=== PATIENT | male | born 1950 | race Caucasian/White ===

== ENCOUNTER 2016-09-24 14:48 | Outpatient (CLI) | payer MEDICARE, OTHER ==
[~2016-09-24] VITALS: Ht 182.9 cm; Wt 114.6 kg
[~2016-09-24 14:48] MED LIST: ASPI-983 PO; CARV25TA PO; CITA40TA11 PO; LISI-556 PO; METF1000 PO; MULT-10 PO; OMG1KC PO; SIMV80TA3 PO; TAMS0.4C2 PO
[2016-09-24 15:27] VITALS: BP 121/69
[2016-09-24] MEDS ORDERED: ASPI325T32 PO (15:56)
[2016-09-24] MEDS ORDERED: OMEG-9 PO (15:56)
--- NOTE | 2016-09-24 16:22 | HISTORY AND PHYSICAL ---
DATE OF SERVICE: REASON FOR ADMISSION: Outpatient surgery on 09/26/2016 for left knee arthroscopy. HISTORY OF PRESENT ILLNESS: The patient is a 66-year-old gentleman with progressively worsening left knee pain. He has previously undergone two arthroscopies. He reports that he was doing very well until he slipped and has had lateral knee pain since that point. This has been ongoing for several weeks. It has not improved since the time of his injury. He was doing well prior to his fall. He denies posterior knee pain. He reports pain laterally. He denies fevers, chills, night sweats or weight loss. REVIEW OF SYSTEMS: No chest pain, no shortness of breath, no dysuria. PAST MEDICAL HISTORY: Coronary artery disease, diabetes mellitus type 2. PAST SURGICAL HISTORY: Coronary artery bypass, TURP, colon resection. FAMILY HISTORY: Significant for ischemic heart disease. PRIMARY CARE PROVIDER: Dr. Sotelo. MEDICATIONS: Celexa, fish oil, vitamins, aspirin, carvedilol, lisinopril, metformin, simvastatin, gabapentin, and Tovaiz. ALLERGIES: PENICILLIN. SOCIAL HISTORY: The patient drinks alcohol occasionally and denies tobacco use. RADIOGRAPHS: Reveal near complete loss of his medial joint space. PHYSICAL EXAMINATION: GENERAL: The patient is a well-developed, well-nourished, in no acute distress. HEENT: Normocephalic and atraumatic. Pupils are equal, round, and reactive to light. Oropharynx is clear. NECK: Supple with no lymphadenopathy. LUNGS: Clear to auscultation bilaterally. HEART: Regular rate and rhythm. ABDOMEN: Soft, nontender, and nondistended. EXTREMITIES: The left knee demonstrates a moderate effusion. He is markedly tender along his lateral joint and he has pain laterally with Carlyn's. He has pain with the patellar loading. He is nontender over his medial joint line. He is nontender posteriorly. Range of motion is 0/3/140. He is ligamentously stable in all planes. The patient ambulates with a cane. 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 PLAN: Left knee arthroscopy, partial meniscectomy and chondroplasty. The risks, benefits, options, ramifications, and recovery were discussed at length with the patient. He understands and wishes to proceed. Job ID: [id number] DocumentID: [id number] Dictated Date: 09/24/2016 15:03:45 Agricultural Equipment Operator Date: 09/24/2016 16:12:01 Dictated By: MARÍA MATHIS MD
== END 2016-09-24 16:18 | disposition home or self-care (01) ==
LOC: PREOP 14:48
PROVIDERS: ATTEND Orthopaedic Surgery
DX: Z01.818 Encounter for other preprocedural examination (principal); S83.242A Other tear of medial meniscus, current injury, left knee, initial encounter; X58.XXXA Exposure to other specified factors, initial encounter; Y99.8 Other external cause status
CPT/HCPCS: 87081

== ENCOUNTER 2016-09-26 07:47 | Day surgery (SDC) | payer MEDICARE, OTHER ==
[~2016-09-26] VITALS: Ht 182.9 cm; Wt 114.6 kg
[~2016-09-26 07:47] MED LIST changes: +ASPI325T32 PO; +OMEG-9 PO
[2016-09-26 08:10] VITALS: BP 137/75
[2016-09-26] MEDS ORDERED: FAMOTIDINE 20MG/2ML IV (PEPCID) IV ONE (08:15)
[2016-09-26] MEDS ORDERED: CLINDAMYCIN 600 MG/4ML (CLEOCIN) VIAL ONE (08:16)
[2016-09-26] MEDS ORDERED: NS (IVPB) 50 ML ONE (08:16)
--- NOTE | 2016-09-26 08:20 | Progress Note-Pre Operative ---
Pre-Operative Progress Note H&P Reviewed The H&P was reviewed, patient examined and no changes noted. Date Seen by Provider: Sep 26, 2016 Time Seen by Provider: 08:19 Date H&P Reviewed: Sep 26, 2016 Time H&P Reviewed: 05:36 Pre-Operative Diagnosis: left knee lateral meniscus tear and chondromalacia MARÍA MATHIS MD Sep 26, 2016 08:20
--- NOTE | 2016-09-26 08:21 | Progress Note-Post Operative ---
Post-Operative Progess Note Surgeon (s)/Crown Wheel Assembler (s) Surgeon MARÍA MATHIS MD Crown Wheel Assembler: Sharad Lees Pre-Operative Diagnosis left knee lateral meniscus tear and chondromalacia Post-Operative Diagnosis left knee lateral and medial meniscus tears and chondromalacia of the medial femoral condyle, lateral tibial plateau and patella Procedure & Operative Findings Date of Procedure 09/26/16 Procedure Performed/Findings left knee arthroscopic partial lateral and medial meniscectomies and chondroplasty of the medial femoral condyle, lateral tibial plateau and patella Anesthesia Type GETA Estimated Blood Loss Estimated blood loss (mL): minimal Specimens/Packing Specimens Removed none Packing: none MARÍA MATHIS MD Sep 26, 2016 08:21
[2016-09-26] MEDS ORDERED: CLINDAMYCIN 600 MG/NS 50 ML IVPB IV ONE ×2 (08:30)
[2016-09-26] MEDS ORDERED: CATHETER FLUSH 10 ML SYR IV PRN (08:30)
[2016-09-26] MEDS ORDERED: HYDROcodone/APAP 7.5 MG/325 MG (LORTAB, LORCET PLUS) TABLET PO PRN (08:30)
[2016-09-26] MEDS: LACTATED RINGERS 1,000 ML IV PRN ×2 (08:31→09:22)
[2016-09-26] MEDS ORDERED: HURRICAINE EXT TUBE (BENZOCAINE) ONE (08:38)
[2016-09-26] MEDS ORDERED: morphine PF (DURAMORPH) 10 MG/10 ML AMP ONE (08:38)
[2016-09-26] MEDS ORDERED: proPOfol 200 MG/20 ML (DIPRIVAN) VIAL IV ONE ×2 (08:38→09:10)
[2016-09-26] MEDS ORDERED: LACTATED RINGERS 1,000 ML IV ONE (08:38)
[2016-09-26] MEDS ORDERED: LIDOCAINE PF 2% 5 ML (XYLOCAINE) VIAL ONE (08:38)
[2016-09-26] MEDS ORDERED: SEVOFLURANE (ULTANE) 15 ML INHAL SOLN ONE ×3 (08:38→09:27)
[2016-09-26] MEDS ORDERED: DEXAMETHASONE PF 10 MG/ML (DECADRON) VIAL ONE ×2 (08:38→09:27)
[2016-09-26] MEDS ORDERED: fentaNYL INJECTION 100 MCG/2 ML AMP ONE (08:38)
[2016-09-26] MEDS ORDERED: MIDAZOLAM 2 MG/2 ML (VERSED) VIAL ONE (08:38)
[2016-09-26] MEDS ORDERED: BUPIVACAINE 0.25% 30 ML (SENSORCAINE) VIAL ONE (08:38)
[2016-09-26] MEDS ORDERED: ATRACURIUM 50 MG/5 ML (TRACRIUM) IV ONE (09:12)
[2016-09-26] MEDS ORDERED: morphine INJ 10 MG/ML 1ML (SYR OR VIAL) IVP PRN (10:00)
[2016-09-26] MEDS ORDERED: HYDR-3816 PO (10:16)
[2016-09-26 10:40] VITALS: BP 133/80
[2016-09-26 11:10] VITALS: BP 128/69
--- NOTE | 2016-09-26 11:45 | OPERATIVE REPORT ---
DATE OF SERVICE: 09/26/2016 PREOPERATIVE DIAGNOSIS: 1. Left knee medial meniscal tear. 2. Left knee chondromalacia of the medial femoral condyle. 3. Left knee chondromalacia of the patella. POSTOPERATIVE DIAGNOSIS: 1. Left knee medial meniscal tear. 2. Left knee chondromalacia of the medial femoral condyle. 3. Left knee chondromalacia of the patella. 4. Left knee medial meniscal tear. 5. Left knee chondromalacia of the lateral tibial plateau. PROCEDURES: 1. Left knee arthroscopic partial medial meniscectomy. 2. Left knee arthroscopic partial lateral meniscectomy. 3. Left knee arthroscopic chondroplasty of the medial femoral condyle. 4. Left knee arthroscopic chondroplasty of the lateral tibial plateau. 5. Left knee arthroscopic chondroplasty of the patella. SURGEON: Ivan Mathis MD. WEAPONS SPECIALIST: Sharad Lees, who assisted throughout the procedure and closed the incisions. ANESTHESIA: General endotracheal by Dr. Carreno. TOURNIQUET TIME: Not applicable. ESTIMATED BLOOD LOSS: Minimal. DRAINS: None. COMPLICATIONS: None. POSTOPERATIVE PLAN: Routine arthroscopy protocol. The patient was transported to the recovery room awake and in stable condition. STATEMENT OF MEDICAL NECESSITY: The patient is a 66-year-old gentleman with known arthrosis of his left knee and his medial and patellofemoral compartments. He began to experience lateral knee pain, catching and locking and he was tender along this lateral joint line. It was felt that he likely had a lateral meniscal tear. He had failed to respond to conservative measures and due to functional impairment, the patient elected to proceed with surgical intervention. Examination under anesthesia revealed range of motion of 0/3/125 with a negative Ricky, negative anterior and posterior drawer, no varus or valgus laxity and a negative pivot shift. ARTHROSCOPIC FINDINGS: The patella demonstrated grade 2 chondral flap centrally in a 10 x 10 area. The trochlea demonstrated grade 1-2 chondral softening with no unstable chondral flaps. Medial and lateral gutters were clear. The medial compartment demonstrated diffuse grade 3-4 chondral changes with unstable chondral flaps on medial femoral condyle in a 10 x 10 area. In addition, there was a flap tear of the body of the medial meniscus involving approximately one-third of the body. The ACL and PCL were intact. The lateral compartment demonstrated a 2:25 tear of the posterior horn of the meniscus involving approximately one-third of the posterior horn. In addition, there was a grade 2 chondral flap on the tibial plateau laterally in an 8 x 8 area. PROCEDURE: After risks and benefits of the procedure were discussed and questions were answered, an informed consent was signed and placed on the chart. The operative site was confirmed in the preoperative holding area and initialled by the surgeon. The patient was then transported to the operating room and after adequate levels of general endotracheal anesthetic were obtained, a timeout was called confirming the operative site. Examination under anesthesia was performed with the above findings noted. The left lower extremity was prepped and draped in the usual sterile fashion. The knee joint was injected with 60 mL of fluid and a standard inferolateral portal was placed for the arthroscope under direct visualization and inferomedial port was created. The menisci and cruciates were carefully probed with the above findings noted. The unstable chondral flaps on the patella were debrided with a shaver back to a stable edge. The scope was redirected into the medial compartment, the unstable chondral flaps of the medial femoral condyle were debrided with a shaver back to a stable edge and the medial meniscus was debrided with a shaver back to a stable edge. This was carefully probed with no further tearing or instability noted. The scope was then redirected into the lateral compartment where the unstable chondral flaps on the lateral tibial plateau were debrided with shaver back to a stable edge and the posterolateral meniscus was debrided with a biter and a shaver removing the proximal one-third of the posterior horn and this was carefully probed with no further tearing or instability noted. The knee was copiously irrigated. Port sites were closed with 3-0 nylon in simple interrupted fashion. The knee was injected with Duramorph. The port sites were infiltrated with plain Marcaine. A soft dressing was applied and patient transported to the recovery room awake in stable condition. Job ID: [id number] DocumentID: [id number] Dictated Date: 09/26/2016 09:49:35 Slurry Man Date: 09/26/2016 11:44:37 Dictated By: IVAN MATHIS MD
--- NOTE | 2016-09-26 12:16 | Physical Therapy Ortho Eval ---
PT Orthopedic Evaluation Type of Surgery Knee Scope Prior Level of Function Current Living Status: Spouse Established Durable Medical Eq: Crutches Subjective Subjective Agreeable to PT. Reprots he has crutches at home Entry Into Home: Stairs With Railing Steps Into Home: 2 Motor Control Motor Control: Motor Control WNL ROM ROM: WFL, except focal deficit (left knee slightly limited) Strength Strength: Gen Weak,No Focal Deficit (left LE grossly 4-/5 ) Transfer Transfers (B, C, W/C) (FIM): 5 Gait Gait Assistive Device: FWW Weight Bearing Restriction: Weight Bearing/Tolerated Location Restriction: L LE Gait (FIM): 5 Distance (FIM): 3=150 ft Summary/Comments Mod indep with gait post treatment; Educated on and trained with crutches on stairs, pt demonstrated mod indep at conclusion of treatment. Treatment Rendered Treatment: Therapeutic Exercises, Gait Train, Step Train Exercise Instruction: Quad Sets, Straight Leg Raise, Heel Slides Assessment/Goals Goal Time Frame: 1 Visit Understands HEP: Yes Safe Ambulation: Yes Mod indep with functional mobility post treatment. Plan Treatment Plan: Discharge PT/Family Agrees to Plan: Yes Time Time In: 1135 Time Out: 1155 Total Billed Treatment Time: 20 Billed Treatment Time visit EVL 20 No PT/OT Therapy GCodes Therapy Functional Limitation: Physical Therapy Test(s)/Tool used to determine: Level of Assistance Scale Functional Limitation-Current Charge Code: MOBCUR Modifier: CJ Functional Limitation-Goal Charge Code: MOBGOAL Modifier: CI Functional Limitation-D/C Charge Codes: MOBDC Modifier: CI DORY HODGES PT Sep 26, 2016 12:16
== END 2016-09-26 11:58 | disposition home or self-care (01) ==
LOC: SDC 07:47
PROVIDERS: ATTEND Orthopaedic Surgery
DX: M23.8X2 Other internal derangements of left knee (principal); M22.42 Chondromalacia patellae, left knee; I10 Essential (primary) hypertension; I25.10 Atherosclerotic heart disease of native coronary artery without angina pectoris; Z95.1 Presence of aortocoronary bypass graft; E78.5 Hyperlipidemia, unspecified; I50.9 Heart failure, unspecified; E11.9 Type 2 diabetes mellitus without complications; K21.9 Gastro-esophageal reflux disease without esophagitis; Z79.899 Other long term (current) drug therapy; Z79.82 Long term (current) use of aspirin
CPT/HCPCS: 82962

== ENCOUNTER → 2017-01-15 | Outpatient (CLI) | payer MEDICARE, OTHER ==
[~2017-01-15] MED LIST changes: +HYDR-3816 PO
[2017-01-15 09:01] LABS: BASOPHILS % (AUTO) 1 % (0-10); EOSINOPHILS # (AUTO) 0.2 10^3/uL (0.0-0.3); EOSINOPHILS % (AUTO) 4 % (0-10); LYMPHOCYTES # (AUTO) 1.6 X 10^3 (1.0-4.0); LYMPHOCYTES % (AUTO) 44 % (12-44); MEAN CORPUSCULAR HEMOGLOBIN 29 PG (25-34); MEAN CORPUSCULAR HGB CONC 34 G/DL (32-36); MEAN CORPUSCULAR VOLUME 87 FL (80-99); MEAN PLATELET VOLUME 10.7 FL (7.4-10.4); MONOCYTES # (AUTO) 0.3 X 10^3 (0.0-1.0); MONOCYTES % (AUTO) 7 % (0-12); NEUTROPHILS # (AUTO) 1.6 X 10^3 (1.8-7.8); NEUTROPHILS % (AUTO) 44 % (42-75); PLATELET COUNT 136 10^3/uL (130-400); RED BLOOD COUNT 5.12 10^6/uL (4.35-5.85); RED CELL DISTRIBUTION WIDTH 13.1 % (10.0-14.5); WHITE BLOOD COUNT 3.7 10^3/uL (4.3-11.0)
[2017-01-15 09:23] LABS: ALANINE AMINOTRANSFERASE 20 U/L (0-55); ANION GAP 8 MMOL/L (5-14); ASPARTATE AMINO TRANSFERASE 28 U/L (5-34); BLOOD UREA NITROGEN 9 MG/DL (7-18); BUN/CREATININE RATIO 12; CALCIUM 9.2 MG/DL (8.5-10.1); CARBON DIOXIDE 27 MMOL/L (21-32); CHLORIDE 106 MMOL/L (98-107); CREATININE SERUM 0.73 MG/DL (0.60-1.30); GFR ESTIMATED > 60; GLUCOSE 113 MG/DL (70-105); POTASSIUM 4.5 MMOL/L (3.6-5.0); SODIUM 141 MMOL/L (135-145); TOTAL PROTEIN 6.7 GM/DL (6.4-8.2)
== END ==
LOC: ONC 08:32
PROVIDERS: ATTEND Internal Medicine Hematology & Oncology
DX: C18.3 Malignant neoplasm of hepatic flexure (principal)
CPT/HCPCS: 80053; 82378; 85025; 99213

== ENCOUNTER 2017-03-07 21:50 | Observation (INO) | payer MEDICARE, OTHER ==
[~2017-03-07] VITALS: Ht 182.9 cm; Wt 114.0 kg
--- NOTE | 2017-03-07 22:08 | ED Chest Pain ---
General Chief Complaint: Chest Pain Stated Complaint: CP Nursing Triage Note: PT TRANSFER FROM [facility] FOR COMPLAINT OF CHEST PAIN. PT STATES PAIN STARTED SATURDAY. STATES THE PAIN WORSENED THIS AFTERNOON. Nursing Sepsis Screen: No Definite Risk Source: patient, family ( and brother) Exam Limitations: no limitations History of Present Illness Date Seen by Provider: Mar 07, 2017 Time Seen by Provider: 21:59 Initial Comments Patient present to ER by private conveyance with a history that he just came from [facility] where he was seen and for his chest pain. His chest pains described as been going on for the last 2 days, episodic and he points in his epigastric and right upper quadrant region when asked where it is. He describes it as sharp, intermittent and takes his breath away. His been getting worse since he has a history of heart disease with four-vessel CABG and stent with most recent cardiac coronary catheterization about [address] Shi in [place], [place] he decided to go get seen. His initial troponin and EKG were normal and his story did not sound very cardiac so the practitioner in the ER in [place] called local on-call educational manager who recommended that he be sent to the ER in its [place] for workup and observation stay given his coronary history. Patient says he quit smoking just before his first heart attack years ago. He does take a statin but he says his cholesterol and triglycerides of been good. He has no history of pancreatitis. He does drink beer on occasion usually one or 2 a week and his last beer was about 5 days ago. He has not had any trauma to his abdomen or car wrecks. He is not having any reflux or heartburn sensations tonight however he does have a history of acid reflux. He has had half of his colon resected for a polyp years ago. This is left him with chronically loose stools. Otherwise is having no fevers, chills, cough, rash, nasal congestion, ears feeling under water or fall. His pain is not necessarily worsened by movement but definitely by deeper inspiration. In the [place] ER he did receive 2 doses of nitroglycerin which his pain went away shortly thereafter. Presently he says he is not having any pain, nausea, numbness or tingling. Allergies and Home Medications Allergies Coded Allergies: Penicillins (Verified Allergy, Unknown, 09/24/16) Home Medications Aspirin 325 Mg Tablet., 325 MG PO DAILY, (Reported) Carvedilol 25 Mg Tablet, 12.5 MG PO BID, (Reported) TAKE 1/2 OF 25MG TAB Citalopram Hydrobromide 40 Mg Tablet, 20 MG PO DAILY, (Reported) TAKE 1/2 OF 40MG TAB Hydrocodone/Acetaminophen 1 Each Tablet, 1-2 EACH PO Q4H, #30 Prescribed by: VALERIY GUPTA on 09/26/16 1016 Lisinopril 5 Mg Tablet, 2.5 MG PO DAILY, (Reported) TAKE 1/2 OF 5MG TAB Metformin HCl 1,000 Mg Tablet, 1,000 MG PO BID, (Reported) Multivits,Stress Formula 1 Each Tablet, 1 EACH PO DAILY, (Reported) [place] 3 Polyunsat Fatty Acids 1,000 Mg Cap, 1,000 MG PO DAILY, (Reported) [place]-3/Dha/Epa/Fish Oil 1 Each Capsule.dr, 1 EACH PO DAILY, (Reported) Simvastatin 80 Mg Tablet, 40 MG PO DAILY, (Reported) TAKE 1/2 OF 80MG TAB Tamsulosin HCl 0.4 Mg Cap.er.24h, 0.4 MG PO HS, (Reported) Review of Systems Constitutional: No chills, No diaphoresis, No dizziness, No fever, No malaise EENTM: No Blurred Vision, No Double Vision Respiratory: Denies Cough, SOA at Rest, Denies Wheezing Cardiovascular: See HPI, Chest Pain, Denies Irregular Heart Rate, Denies Lightheadedness, Denies Palpitations Gastrointestinal: See HPI, Abdomen Distended (mildly), Abdominal Pain, Denies Constipated, Diarrhea, Denies Nausea, Denies Vomiting Genitourinary: Denies Burning, Denies Discharge Musculoskeletal: No back pain, No joint pain Skin: No pruritus, No rash Psychiatric/Neurological: Denies Headache, Denies Numbness, Denies Paresthesia Past Pdidymx-Jdyqjh-Bazgxl Hx Patient Social History Alcohol Use: Occasionally Uses Alcohol Beverage of Choice: Beer Recreational Drug Use: No Smoking Status: Former Smoker Type Used: Cigarettes Former Smoker, Quit: Sep 25, 1991 Recent Foreign Travel: No Contact w/Someone Who Travel: No Recent Infectious Disease Expo: No Recent Hopitalizations: No Immunizations Up To Date Tetanus Booster (TDap): Unknown Date of Pneumonia Vaccine: Nov 21, 2015 Date of Influenza Vaccine: Nov 21, 2015 Seasonal Allergies Seasonal Allergies: Yes (MILD) Surgeries Surgeries: Adenoidectomy, CABG, Coronary Stent, Tonsillectomy Cardiovascular Cardiac Disorders: Heart Attack, High Cholesterol, Hypertension Reproductive System Hx Reproductive Disorders: No Sexually Transmitted Disease: No HIV/AIDS: No Genitourinary Genitourinary Disorders: Prostate Problems Gastrointestinal Gastrointestinal Disorders: Gastroesophageal Reflux Musculoskeletal Musculoskeletal Disorders: Degenerate Disk Disease, Arthritis Endocrine Endocrine Disorders: Diabetes, Non-Insulin dep HEENT Loss of Vision: Bilateral Hearing Impairment: Denies Cancer Cancer: Colon Psychosocial Behavioral Health Disorders: Anxiety Blood Transfusions Adverse Reaction to a Blood Tr: No Physical Exam Vital Signs Vital Sign - Last 12Hours Capillary Refill : Less Than 3 Seconds General Appearance: No Apparent Distress, WD/WN HEENT: PERRL/EOMI, Normal ENT Inspection, Pharynx Normal Neck: Normal Inspection, Non Tender, Supple Respiratory: Chest Non Tender, Lungs Clear, Normal Breath Sounds, No Accessory Muscle Use, No Respiratory Distress Cardiovascular: Regular Rate, Rhythm, No Edema, No Murmur, Normal Peripheral Pulses Gastrointestinal: Normal Bowel Sounds, No Organomegaly, Non Tender, Soft Neurologic/Psychiatric: Alert, Oriented x3 Skin: Normal Color, Warm/Dry Progress/Results/Core Measures Results/Orders Lab Results Laboratory Tests Test 03/07/17 21:53 Range/Units White Blood Count 6.2 4.3-11.0 10^3/uL Red Blood Count 4.98 4.35-5.85 10^6/uL Hemoglobin 14.6 13.3-17.7 G/DL Hematocrit 43 40-54 % Mean Corpuscular Volume 86 80-99 FL Mean Corpuscular Hemoglobin 29 25-34 PG Mean Corpuscular Hemoglobin Concent 34 32-36 G/DL Red Cell Distribution Width 13.4 10.0-14.5 % Platelet Count 143 130-400 10^3/uL Mean Platelet Volume 10.9 H 7.4-10.4 FL Neutrophils (%) (Auto) 41 L 42-75 % Lymphocytes (%) (Auto) 48 H 12-44 % Monocytes (%) (Auto) 8 0-12 % Eosinophils (%) (Auto) 4 0-10 % Basophils (%) (Auto) 0 0-10 % Neutrophils # (Auto) 2.5 1.8-7.8 X 10^3 Lymphocytes # (Auto) 3.0 1.0-4.0 X 10^3 Monocytes # (Auto) 0.5 0.0-1.0 X 10^3 Eosinophils # (Auto) 0.2 0.0-0.3 10^3/uL Basophils # (Auto) 0.0 0.0-0.1 10^3/uL Prothrombin Time 13.3 12.2-14.7 SEC INR Comment 1.0 0.8-1.4 Activated Partial Thromboplast Time 29 24-35 SEC D-Dimer 0.45 0.00-0.49 UG/ML Sodium Level 141 135-145 MMOL/L Potassium Level 4.2 3.6-5.0 MMOL/L Chloride Level 107 98-107 MMOL/L Carbon Dioxide Level 24 21-32 MMOL/L Anion Gap 10 5-14 MMOL/L Blood Urea Nitrogen 16 7-18 MG/DL Creatinine 0.81 0.60-1.30 MG/DL Estimat Glomerular Filtration Rate > 60 BUN/Creatinine Ratio 20 Glucose Level 113 H 70-105 MG/DL Calcium Level 9.5 8.5-10.1 MG/DL Magnesium Level 2.1 1.8-2.4 MG/DL Total Bilirubin 0.8 0.1-1.0 MG/DL Aspartate Amino Transf (AST/SGOT) 33 5-34 U/L Alanine Aminotransferase (ALT/SGPT) 25 0-55 U/L Alkaline Phosphatase 46 40-136 U/L Myoglobin 104.7 H 10.0-92.0 NG/ML Troponin I < 0.30 <0.30 NG/ML B-Type Natriuretic Peptide 21.6 <100.0 PG/ML Total Protein 6.7 6.4-8.2 GM/DL Albumin 4.0 3.2-4.5 GM/DL Lipase 38 8-78 U/L My Orders Orders - MAYI SONG Cbc With Automated Diff (03/07/17 22:06) Magnesium (03/07/17 22:06) Ekg Tracing (03/07/17 22:06) Cardiac Profile 1 (03/07/17 22:06) Comprehensive Metabolic Panel (03/07/17 22:06) Myoglobin Serum (03/07/17 22:06) Protime With Inr (03/07/17 22:06) Partial Thromboplastin Time (03/07/17 22:06) O2 (03/07/17 22:06) Monitor-Rhythm Ecg Trace Only (03/07/17 22:06) Lipid Panel (03/08/17 06:00) Aspirin Chewable Tablet (Baby Aspirin Ch (03/07/17 22:15) Saline Lock/Iv-Start (03/07/17 22:06) Lipase (03/07/17 22:06) BNP (03/07/17 22:06) Fibrin Degradation Products (03/07/17 22:06) Chest Pa/Lat (2 View) (03/07/17 22:06) Lidocaine 2% Viscous 15 Ml (Xylocaine Vi (03/07/17 22:30) Famotidine Tablet (Pepcid Tablet) (03/07/17 22:17) Antacid Suspension (Mylanta Suspension (03/07/17 22:30) Medications Given in ED Current Medications Medications Dose Ordered Sig/Barrie Route Start Time Stop Time Status Last Admin Dose Admin Al Hydrox/Mg Hydrox/Simethicone 30 ml ONCE ONCE PO 03/07/17 22:30 03/07/17 22:31 DC 03/07/17 22:23 30 ML Aspirin 81 mg ONCE ONCE PO 03/07/17 22:15 03/07/17 22:16 DC 03/07/17 22:23 81 MG Lidocaine HCl 15 ml ONCE ONCE PO 03/07/17 22:30 03/07/17 22:31 DC 03/07/17 22:23 15 ML Vital Signs/I&O Vital Sign - Last 12Hours 03/07/17 03/07/17 03/07/17 21:50 21:50 21:50 Temp 98.0 Pulse 55 Resp 20 B/P (MAP) 148/74 (98) Pulse Ox 99 99 O2 Delivery Room Air Room Air Nasal Cannula O2 Flow Rate 2.00 2.00 Blood Pressure Mean: 98 Progress Note : Time: 22:14 Progress Note Patient describes this pain is different from what he felt when he was having a heart attack in the past. So cardiogenic as not as likely to be the case however he does deserve a serial troponin and EKG workup given his extensive cardiac history. We'll also get a d-dimer despite him having no coughing he is having shortness of breath but normal sats so low intermediate risk for pulmonary embolism. No evidence of DVT. We'll also trial a GI cocktail see if that helps with some of his symptoms however he is not having any of the pain right now. Esophageal spasms, bronchospasms, peptic ulcer disease, pancreatitis , gallbladder disease are also in the differential. Given his pleuritic chest pain nature there could be inflammation along his diaphragm from a pneumonia, or other inflammatory source. ECG Initial ECG Impression Date: Mar 07, 2017 Initial ECG Impression Time: 21:53 Initial ECG Rate: 55 Initial ECG Rhythm: Normal Sinus Initial ECG Intervals: LA (172) Initial ECG Impression: Normal, Nonspecific Changes Initial ECG Comparisson: Unchanged Comment No appreciable T-wave elevation or depression. Diagnostic Imaging Diagonstic Imaging: Xray Plain Films/CT/US/NM/MRI: chest (2v) Comments No acute cardiopulmonary processes noted. Evidence of prior cardiac surgery noted. Reviewed: Reviewed by Me Departure Communication (Admissions) Time/Spoke to Admitting Phy: 23:[address] Ochoa and she is okay to admit the patient. Time/Spoke to Consulting Phy: 22:55 Communication/Consulting Dr. Quinonez: Discussed case lab imaging and findings and he would like an echocardiogram and stress test in the morning. Impression Impression: Primary Impression: Chest pain on exertion Disposition: ADMITTED INPATIENT Condition: Stable Admissions Decision to Admit Reason: Admit from ER (General) Decision to Admit/Date: Mar 07, 2017 Time/Decision to Admit Time: 22:17 Departure-Patient Inst. Referrals: SHAKIRA DÍAZ DO (PCP/Family) Primary Care Physician Copy Copies To 1: SHAKIRA DÍAZ TITUS J Mar 07, 2017 22:08
[2017-03-07] MEDS ORDERED: ASPIRIN 81 MG CHEW (CHILDREN'S ASA) PO ONE (22:15)
[2017-03-07] MEDS ORDERED: FAMOTIDINE 20 MG (PEPCID) TABLET PO STA (22:17)
[2017-03-07 22:18] LABS: BASOPHILS % (AUTO) 0 % (0-10); EOSINOPHILS # (AUTO) 0.2 10^3/uL (0.0-0.3); EOSINOPHILS % (AUTO) 4 % (0-10); HEMATOCRIT 43 % (40-54); HEMOGLOBIN 14.6 G/DL (13.3-17.7); LYMPHOCYTES % (AUTO) 48 % (12-44); MEAN CORPUSCULAR HEMOGLOBIN 29 PG (25-34); MEAN CORPUSCULAR HGB CONC 34 G/DL (32-36); MEAN CORPUSCULAR VOLUME 86 FL (80-99); MEAN PLATELET VOLUME 10.9 FL (7.4-10.4); MONOCYTES # (AUTO) 0.5 X 10^3 (0.0-1.0); MONOCYTES % (AUTO) 8 % (0-12); NEUTROPHILS # (AUTO) 2.5 X 10^3 (1.8-7.8); NEUTROPHILS % (AUTO) 41 % (42-75); PLATELET COUNT 143 10^3/uL (130-400); RED BLOOD COUNT 4.98 10^6/uL (4.35-5.85); RED CELL DISTRIBUTION WIDTH 13.4 % (10.0-14.5); WHITE BLOOD COUNT 6.2 10^3/uL (4.3-11.0)
[2017-03-07 22:23] LABS: PROTHROMBIN TIME PATIENT 13.3 SEC (12.2-14.7)
[2017-03-07 22:24] LABS: ALANINE AMINOTRANSFERASE 25 U/L (0-55); ALKALINE PHOSPHATASE 46 U/L (40-136); BILIRUBIN,TOTAL 0.8 MG/DL (0.1-1.0); BUN/CREATININE RATIO 20; CALCIUM 9.5 MG/DL (8.5-10.1); CARBON DIOXIDE 24 MMOL/L (21-32); CHLORIDE 107 MMOL/L (98-107); CREATININE SERUM 0.81 MG/DL (0.60-1.30); GFR ESTIMATED > 60; GLUCOSE 113 MG/DL (70-105); LIPASE 38 U/L (8-78); MAGNESIUM 2.1 MG/DL (1.8-2.4); POTASSIUM 4.2 MMOL/L (3.6-5.0); SODIUM 141 MMOL/L (135-145); TOTAL PROTEIN 6.7 GM/DL (6.4-8.2)
[2017-03-07] MEDS ORDERED: LIDOCAINE 2% VISCOUS 15 ML UDC PO ONE (22:30)
[2017-03-07] MEDS ORDERED: ANTACID SUSP 30 ML UDC (MYLANTA) PO ONE (22:30)
[2017-03-07 22:31] LABS: MYOGLOBIN SERUM 104.7 NG/ML (10.0-92.0)
[2017-03-07 23:42] VITALS: BP 137/74
[2017-03-07 23:45] VITALS: BP 133/71
[2017-03-08] VITALS (26 sets, daily range): BP systolic 122–159; BP diastolic 52–83
[2017-03-08] MEDS ORDERED: morphine INJ 4 MG/ML 1 ML (VIAL/SYRINGE) IV PRN (01:30)
[2017-03-08] MEDS ORDERED: NITROGLYCERIN 0.4 MG SL TABS BTL 25'S SL PRN (01:30)
[2017-03-08] MEDS ORDERED: ONDANSETRON 4 MG/2 ML (SDV) Z0FRAN IV PRN (01:30)
[2017-03-08] MEDS ORDERED: ACETAMINOPHEN 500 MG TAB (TYLENOL) PO PRN (01:30)
[2017-03-08 04:48] LABS: BASOPHILS % (AUTO) 0 % (0-10); EOSINOPHILS # (AUTO) 0.1 10^3/uL (0.0-0.3); EOSINOPHILS % (AUTO) 3 % (0-10); HEMATOCRIT 42 % (40-54); HEMOGLOBIN 14.2 G/DL (13.3-17.7); LYMPHOCYTES # (AUTO) 2.1 X 10^3 (1.0-4.0); LYMPHOCYTES % (AUTO) 46 % (12-44); MEAN CORPUSCULAR HEMOGLOBIN 30 PG (25-34); MEAN CORPUSCULAR HGB CONC 34 G/DL (32-36); MEAN CORPUSCULAR VOLUME 87 FL (80-99); MEAN PLATELET VOLUME 10.6 FL (7.4-10.4); MONOCYTES # (AUTO) 0.3 X 10^3 (0.0-1.0); MONOCYTES % (AUTO) 8 % (0-12); NEUTROPHILS % (AUTO) 43 % (42-75); PLATELET COUNT 127 10^3/uL (130-400); RED BLOOD COUNT 4.81 10^6/uL (4.35-5.85); RED CELL DISTRIBUTION WIDTH 13.3 % (10.0-14.5); WHITE BLOOD COUNT 4.6 10^3/uL (4.3-11.0)
[2017-03-08 05:05] LABS: BUN/CREATININE RATIO 19; CALCIUM 8.8 MG/DL (8.5-10.1); CARBON DIOXIDE 24 MMOL/L (21-32); CHLORIDE 106 MMOL/L (98-107); CREATININE SERUM 0.74 MG/DL (0.60-1.30); GFR ESTIMATED > 60; GLUCOSE 113 MG/DL (70-105); POTASSIUM 4.2 MMOL/L (3.6-5.0); SODIUM 141 MMOL/L (135-145)
[2017-03-08] MEDS: inSUlin (REGULAR) HUMAN 1 UNIT/0.01 ML (CHARGE PER UNIT) SC SCH ×3 (05:06→17:38)
[2017-03-08 05:07] LABS: CHOLESTEROL 123 MG/DL (< 200); HDL CHOLESTEROL 37 MG/DL (40-60); TRIGLYCERIDES 81 MG/DL (<150); VLDL CHOLESTEROL 16 MG/DL (5-40)
--- NOTE | 2017-03-08 06:50 | Diagnostic Imaging Report ---
INDICATION: Chest pain. PA and lateral views of chest were obtained. FINDINGS: Heart size is normal. There has been previous median sternotomy and coronary bypass graft. There is no pleural effusion, pneumothorax or pneumonia. Mediastinum is unremarkable. IMPRESSION: No acute cardiopulmonary abnormality. Dictated by: Dictated on workstation # [id number]
[2017-03-08] MEDS ORDERED: ASPIRIN E.C. 325 MG (ECOTRIN) TABLET PO SCH (09:00)
[2017-03-08] MEDS ORDERED: lisINopril 5 MG (PRINIVIL) TABLET PO SCH (09:00)
--- NOTE | 2017-03-08 10:20 | Consultation-Cardiology ---
HPI-Cardiology Cardiology Consultation: Date of Consultation 03/08/17 Date of Admission Attending Physician Kathy Ochoa DO Admitting Physician Jaime Sotelo DO Consulting Physician Queenie QUINONEZ MD HPI: Time Seen by Provider: 09:10 Chief Complaint: Chest pain This is a 67-year-old gentleman who presented to [place] emergency department for chest pain. His chest pain has been going on for a couple of days and is more in the lower chest area and the epigastric area. He describes it as sharp and associated with breathing occasionally. He's had CABG and PCI in the past. He has previous history of smoking. Occasional alcohol use. Patient denies any other cardiac symptoms including shortness of breath, palpitation, syncope, near syncope. Review of Systems-Cardiology Review of Systems Constitutional: No As described under HPI, No no symptoms reported, No chills, No fever, No lightheadedness, No malaise, No tiredness, No weight loss, No weight gain, No other Eyes: No As described under HPI, No no symptoms reported, No blindness, No blurred vision, No contact lenses, No drainage, No decreased acuity, No foreign body sensation, No glasses, No inflammation, No pain, No photophobia, No previous injury, No shadows, No tunnel vision, No other, No vision change Ears/Nose/Throat: No As described under HPI, No no symptoms reported, No chronic hearing loss, No epistaxis, No ear discharge, No ear pain, No loose teeth, No mouth pain, No mouth swelling, No nasal drainage, No nose pain, No recent hearing loss, No throat pain, No throat swelling, No ulcerations, No other Respiratory: No no symptoms reported, No As described under HPI, No cough, No orthopnea, No shortness of breath, No SOB with excertion, No SOB at rest, No stridor, No wheezing, No other Cardiovascular: chest pain Gastrointestinal: No no symptoms reported, No As described under HPI, No abdomen distended, No abdominal pain, No blood streaked bowels, No constipation , No diarrhea, No difficulty swallowing, No nausea, No poor appetite, No poor fluid intake, No rectal bleeding, No vomiting, No other, No nausea/vomiting/ diarrhea, No stool coloration changes Genitourinary: No no symptoms reported, No As described under HPI, No burning, No dysuria, No discharge, No frequency, No flank pain, No hematuria, No incontinence, No pain, No urgency, No other, No urine frequency changes, No urine coloration changes Musculoskeletal: No no symptoms reported, No As describe under HPI, No back pain, No gout, No joint pain, No joint swelling, No muscle pain, No muscle stiffness, No neck pain, No other Skin: No no symptoms reported, No As described under HPI, No change in color, No change in hair/nails, No dryness, No lesions, No lumps, No rash, No other, No skin related problems, No ulcerations, No rash on exposed areas, No ulcerations on exposed areas Psychiatric/Neurological: No no symptoms reported, No As described under HPI, No anxiety, No depression, No emotional problems, No headache, No numbness, No pre-existing deficit, No seizure, No tingling, No tremors, No weakness, No other , No focal weakness, No syncope Hematologic: No no symptoms reported, No As described under HPI, No anemia, No blood clots, No easy bleeding, No easy bruising, No swollen glands, No other, No bleeding abnormalities [id number] Hx Patient Social History Alcohol Use: Occasionally Uses Recreational Drug Use: No Smoking Status: Former Smoker Type Used: Cigarettes Recent Foreign Travel: No Recent Infectious Disease Expo: No Hospitalization with Isolation: Denies Physical Abuse Screen: No Sexual Abuse: No Immunizations Up To Date Tetanus Booster (TDap): Unknown Date of Pneumonia Vaccine: Nov 21, 2015 Date of Influenza Vaccine: Nov 20, 2016 Past Medical History PMH As described under Assessment. Family Medical History Family History: Cardiovascular disease TWIN BROTHER, Onset:Unknown Myocardial infarction 19 MOTHER, Allergies and Home Medications Allergies Coded Allergies: Penicillins (Verified Allergy, Unknown, 09/24/16) Home Medications Aspirin 325 Mg Tablet.dr, 325 MG PO DAILY, (Reported) Carvedilol 25 Mg Tablet, 12.5 MG PO BID, (Reported) TAKE 1/2 OF 25MG TAB Citalopram Hydrobromide 40 Mg Tablet, 20 MG PO DAILY, (Reported) TAKE 1/2 OF 40MG TAB Lisinopril 5 Mg Tablet, 2.5 MG PO DAILY, (Reported) TAKE 1/2 OF 5MG TAB Metformin HCl 1,000 Mg Tablet, 1,000 MG PO BID, (Reported) Multivits,Stress Formula 1 Each Tablet, 1 TAB PO DAILY, (Reported) [place] 3 Polyunsat Fatty Acids 1,000 Mg Cap, 1,000 MG PO DAILY, (Reported) Simvastatin 80 Mg Tablet, 40 MG PO HS, (Reported) TAKE 1/2 OF 80MG TAB Tamsulosin HCl 0.4 Mg Cap.er.24h, 0.4 MG PO HS, (Reported) Physical Exam-Cardiology Physical Exam Vital Signs/I&O Vital Sign - Last 12Hours 03/07/17 03/07/17 03/07/17 03/07/17 23:35 23:40 23:42 23:45 Temp 98.0 97.5 Pulse 59 58 56 Resp 20 16 B/P (MAP) 137/74 (95) 133/71 (91) Pulse Ox 96 97 97 O2 Delivery Room Air Room Air Room Air Room Air 03/07/17 03/08/17 03/08/17 03/08/17 23:49 00:00 00:00 00:15 Pulse 55 58 56 B/P (MAP) 143/78 (99) 129/69 (89) Pulse Ox 100 O2 Delivery Room Air Nasal Cannula Room Air O2 Flow Rate 2.00 03/08/17 03/08/17 03/08/17 03/08/17 00:30 00:33 00:45 01:00 Pulse 55 56 53 B/P (MAP) 133/69 (90) 134/68 (90) 137/68 (91) Pulse Ox 100 O2 Delivery Room Air Nasal Cannula Nasal Cannula Nasal Cannula O2 Flow Rate 2.00 2.00 2.00 03/08/17 03/08/17 03/08/17 03/08/17 01:00 01:15 01:30 01:45 Pulse 53 54 52 51 B/P (MAP) 129/67 (87) 124/68 (86) 136/72 (93) O2 Delivery Nasal Cannula Nasal Cannula Nasal Cannula O2 Flow Rate 2.00 2.00 2.00 03/08/17 03/08/17 03/08/17 03/08/17 02:00 03:00 04:00 04:00 Temp 97.6 Pulse 52 54 53 B/P (MAP) 131/70 (90) 132/72 (92) 129/64 (85) Pulse Ox 100 O2 Delivery Nasal Cannula Nasal Cannula Nasal Cannula Nasal Cannula O2 Flow Rate 2.00 2.00 2.00 2.00 03/08/17 03/08/17 03/08/17 05:00 06:00 07:00 Pulse 52 54 80 B/P (MAP) 142/70 (94) 124/62 (82) O2 Delivery Nasal Cannula Nasal Cannula O2 Flow Rate 2.00 2.00 Capillary Refill : Less Than 3 Seconds Constitutional: No appears stated age, No AAO x 3, No apparent distress, No PERRL, No well-developed, No well-nourished, No other HEENT: No PERRL, No normal ENT inspection, No TMs normal, No pharynx normal, No scleral icterus (R), No scleral icterus (L), No pale conjunctivae (R), No pale conjunctivae (L), No photophobia, No TM abnormal (R), No TM abnormal (L), No pharyngeal erythema, No tonsillar exudate, No other, No discharge, No EOMI, No hearing is well preserved, No hard of hearing, No oral hygience is good, No ulceration, No xanthelasmas are seen Neck: No non-tender, No full range of motion, No supple, No normal inspection, No carotid bruit, No limited range of motion, No lymphadenopathy (R), No lymphadenopathy (L), No tender lateral, No tender midline, No thyromegaly, No other, No carotid pulses are 2 + bilaterally, No with good upstrokes Respiratory: No accessory muscle use, No respiratory distress, No chest tender , No chest expansion is symmetric, No chest is bilaterally symmetric, No lungs clear to percussion, No lungs clear to auscultation, No crackles, No rhonchi, No rales, No stridor, No wheezing, No pleural rub, No other Cardiovascular: regular rate-rhythm, No irregularly irregular, No extra beats, No parasternal heave is noted, No JVD, No edema, No bradycardia, No tachycardia , No point of maximal impulse, No cardiac thrills are palpable, S1 and S2, No gallop/S3, No gallop/S4, No diastolic murmur, No systolic murmur, No friction rub, No click, No other Gastrointestinal: No tender, No soft, No round, No distended, No pulsatile mass , No organomegaly, No guarding, No rebound, No tenderness, No hernia, No mass, No audible bowel sounds, No abnormal bowel sounds, No abdominal bruits, No spleenomegaly, No other Rectal: deferred Extremities: No normal range of motion, No non-tender, No normal inspection, No pedal edema, No calf tenderness, No normal capillary refill, No pelvis stable , No calf tenderness, No inflammation, No pedal edema, No slow capillary refill , No swelling, No other, No abrasion, No clubbing, No cyanosis, No ecchymosis, No laceration, No no lower extremity edema bilateral, No significant edema, No tenderness, No wound Neurologic/Psychiatric: No day haul youth supervisor II-XII nml as tested, No no motor/sensory deficits, No alert, No normal mood/affect, No oriented x 3, No abnormal cerebellar tests, No abnormal day haul youth supervisor II-XII, No abnormal gait, No aphasia, No EOM palsy, No facial droop, No motor weakness, No sensory deficit, No depressed affect, No disoriented x 3, No other, No grossly intact, No power is 5/5 both on sides Skin: No normal color, No warm/dry, No cyanosis, No cool, No diaphoresis, No damp, No ecchymosis, No jaundice, No mottled, No pallor, No rash, No tattoos/ piercings, No ulcerations, No rash on exposed areas, No ulcerations on exposed areas, No other Data Review Labs Laboratory Tests 03/07/17 21:53: White Blood Count 6.2, Red Blood Count 4.98, Hemoglobin 14.6, Hematocrit 43, Mean Corpuscular Volume 86, Mean Corpuscular Hemoglobin 29, Mean Corpuscular Hemoglobin Concent 34, Red Cell Distribution Width 13.4, Platelet Count 143, Mean Platelet Volume 10.9H, Neutrophils (%) (Auto) 41L, Lymphocytes (%) (Auto) 48H, Monocytes (%) (Auto) 8, Eosinophils (%) (Auto) 4, Basophils (%) (Auto) 0, Neutrophils # (Auto) 2.5, Lymphocytes # (Auto) 3.0, Monocytes # (Auto) 0.5, Eosinophils # (Auto) 0.2, Basophils # (Auto) 0.0, Prothrombin Time 13.3, INR Comment 1.0, Activated Partial Thromboplast Time 29, D-Dimer 0.45, Sodium Level 141, Potassium Level 4.2, Chloride Level 107, Carbon Dioxide Level 24, Anion Gap 10, Blood Urea Nitrogen 16, Creatinine 0.81, Estimat Glomerular Filtration Rate > 60, BUN/Creatinine Ratio 20, Glucose Level 113H, Calcium Level 9.5, Magnesium Level 2.1, Total Bilirubin 0.8, Aspartate Amino Transf (AST/SGOT) 33, Alanine Aminotransferase (ALT/SGPT) 25, Alkaline Phosphatase 46, Myoglobin 104.7H, Troponin I < 0.30, B-Type Natriuretic Peptide 21.6, Total Protein 6.7, Albumin 4.0, Lipase 38 03/08/17 04:30: White Blood Count 4.6, Red Blood Count 4.81, Hemoglobin 14.2, Hematocrit 42, Mean Corpuscular Volume 87, Mean Corpuscular Hemoglobin 30, Mean Corpuscular Hemoglobin Concent 34, Red Cell Distribution Width 13.3, Platelet Count 127L, Mean Platelet Volume 10.6H, Neutrophils (%) (Auto) 43, Lymphocytes (%) (Auto) 46H, Monocytes (%) (Auto) 8, Eosinophils (%) (Auto) 3, Basophils (%) (Auto) 0, Neutrophils # (Auto) 2.0, Lymphocytes # (Auto) 2.1, Monocytes # (Auto) 0.3, Eosinophils # (Auto) 0.1, Basophils # (Auto) 0.0, Sodium Level 141, Potassium Level 4.2, Chloride Level 106, Carbon Dioxide Level 24, Anion Gap 11, Blood Urea Nitrogen 14, Creatinine 0.74, Estimat Glomerular Filtration Rate > 60, BUN/ Creatinine Ratio 19, Glucose Level 113H, Calcium Level 8.8, Troponin I < 0.30, Triglycerides Level 81, Cholesterol Level 123, LDL Cholesterol Direct 77, VLDL Cholesterol 16, HDL Cholesterol 37L ECG Impression ECG Initial ECG Rhythm: Normal Sinus Initial ECG Impression: Nonspecific Changes A/P-Cardiology Assessment/Admission Diagnosis Chest pain, Coronary artery disease, Hypertension, Hyperlipidemia Plan Acute coronary syndrome has been ruled out with negative serial troponin and EKG. I will request echocardiogram and pharmacological nuclear stress test since the patient has history of CABG and PCI in the past. For CAD continue aspirin, statin, beta albert and JANIE inhibitor. Continue lisinopril and beta albert for blood pressure. Blood pressure is well controlled. Continue statin therapy for hyperlipidemia. We'll check lipid profile during hospitalization. Thank you for your consultation. Please call me if you have any questions. Eric Quinonez MD, FACP, FACC, FSCAI, FHRS, CCDS Interventional Cardiology Cardiac Electrophysiology Vascular Medicine and Endovascular Interventions Clinical Quality Measures DVT/VTE Risk/Contraindication: Risk Factor Score Per Nursin RFS Level Per Nursing on Admit: 3=High Queenie QUINONEZ MD Mar 08, 2017 10:20
[2017-03-08] MEDS: CARVEDILOL 12.5 MG (COREG) TABLET PO SCH ×2 (10:58→17:10)
[2017-03-08] MEDS ORDERED: REGADENOSON 0.4 MG/5 ML SYR (LEXISCAN) IV ONE ×2 (12:32→12:45)
--- NOTE | 2017-03-08 14:04 | Short Stay Summary-Hospitalist ---
HPI History of Present Illness: HPI/Chief Complaint Pt is a 67yoCM with a PMH of CAD and HI s/p 4 vessel CABG who presented chest pain in his epigastrium that started yesterday. He presented to [facility] who advised him to seek care here. He denied any SOB, radiation, diaphoresis, or nausea. He also did not think that it felt similar to his previous HI. He describes the pain as sharp. He denies any current pain. He knows he is to undergo a stress test today. Source: patient Date Seen 03/08/17 Time Seen by Provider: 07:20 Attending Physician Kathy Ochoa DO PCP Jaime Sotelo DO Referring Physician Date of Admission Mar 07, 2017 at 10:22 pm Home Medications & Allergies Home Medications Reviewed patient Home Medication Reconciliation Form Allergies Allergies Coded Allergies Penicillins (Verified Allergy, Unknown, 09/24/16) Past [id number] Hx Patient Social History Alcohol Use: Occasionally Uses Number of Drinks Today: 0 Alcohol Beverage of Choice: Beer Recreational Drug Use: No Smoking Status: Former Smoker Former Smoker, Quit: Sep 25, 1991 Type Used: Cigarettes Physical Abuse Screen: No Sexual Abuse: No Recent Foreign Travel: No Contact w/other who traveled: No Recent Hopitalizations: No Recent Infectious Disease Expo: No Immunizations Up To Date Tetanus Booster (TDap): Unknown Pediatric: No Date of Pneumonia Vaccine: Nov 21, 2015 Date of Influenza Vaccine: Nov 20, 2016 Seasonal Allergies Seasonal Allergies: Yes (MILD) Surgeries Yes (QUAD BYPASS, KNEE SCOPES X3, COLON RESECTION, BACK) Adenoidectomy, CABG, Coronary Stent, Tonsillectomy Respiratory No Cardiovascular Yes (QUAD BYPASS IN 1995) Heart Attack, High Cholesterol, Hypertension Neurological Yes Reproductive System Hx Reproductive Disorders: No Sexually Transmitted Disease: No HIV/AIDS: No Genitourinary Yes Prostate Problems Gastrointestinal Yes (HX COLON RESECTION) Gastroesophageal Reflux Musculoskeletal Yes (BACK SURGERIES X 2) Degenerate Disk Disease, Arthritis, Chronic Back Pain Endocrine History of Endocrine Disorders: Yes Endocrine Disorders: Diabetes, Non-Insulin dep Are Your Blood Sugars Over 250: No HEENT History of HEENT Disorders: Yes Loss of Vision: Bilateral Hearing Impairment: Hard of Hearing Cancer Yes Colon Did You Recieve Any Treatments: Yes Type of Treatment: Surgical Intervention Psychosocial History of Psychiatric Problem: Yes Behavioral Health Disorders: Anxiety, PTSD Integumentary History of Skin or Integumenta: No Blood Transfusions History of Blood Disorders: No Adverse Reaction to a Blood Tr: No Family Medical History Family Hx: Cardiovascular disease TWIN BROTHER, Onset:Unknown Myocardial infarction 19 MOTHER, Review of Systems Constitutional: No chills, No fever EENTM: No blurred vision, No double vision, No nose congestion, No throat pain Respiratory: No cough, No dyspnea on exertion, No short of breath Cardiovascular: chest pain, No edema, No palpitations Gastrointestinal: abdominal pain, No constipation, No diarrhea, No nausea, No vomiting Genitourinary: No dysuria, No frequency Musculoskeletal: No joint pain, No muscle pain Skin: No lesions, No rash Psychiatric/Neurological: Denies Headache, Denies Numbness, Denies Tingling Physical Exam Physical Exam Vital Signs Vital Sign - Last 12Hours Capillary Refill : Less Than 3 Seconds General Appearance: No Apparent Distress, WD/WN HEENT: PERRL/EOMI, Moist Mucous Membranes Neck: Non Tender, Supple Respiratory: Lungs Clear, No Respiratory Distress Cardiovascular: Regular Rate, Rhythm, No Murmur Gastrointestinal: Normal Bowel Sounds, Non Tender, Soft Extremity: Normal Capillary Refill, No Calf Tenderness Neurologic/Psychiatric: Alert, Oriented x3, Normal Mood/Affect Skin: Normal Color, Warm/Dry Results Results/Procedures Lab Laboratory Tests 03/07/17 21:53 03/08/17 04:30 Short Stay Diagnosis Discharge Diagnosis-Short Stay Admission Diagnosis Chest Pain Final Discharge Diagnosis Chest Pain Conclusion Plan See problems Diagnosis/Problems Diagnosis/Problems (1) Chest pain on exertion Status: Acute Assessment & Plan: Troponins negative x3 Abnormal stress Cath reveal multiple chronic occlusions as documented in Dr. Quinonez's note No interventions necessary, will medically optimize and have him follow up with Dr. Jose Guadalupe Quinonez consulted, appreciate recs (2) CAD (coronary artery disease) Assessment & Plan: s/p CABG in 1994 Cardiology consulted, appreciate recs Continue statin, asa, bb, and JANIE Qualifiers: (3) Essential (primary) hypertension Assessment & Plan: Relatively well controlled, continue coreg and lisinopril (4) BPH (benign prostatic hyperplasia) Assessment & Plan: Continue Flomax (5) Depression Assessment & Plan: Continue Zoloft Clinical Quality Measures DVT/VTE Risk/Contraindication: Risk Factor Score Per Nursin RFS Level Per Nursing on Admit: 3=High HERBERT,FIDELIA M MD Mar 08, 2017 14:04
[2017-03-08] MEDS ORDERED: MIDAZOLAM 5 MG/5 ML (VERSED) VIAL ONE (14:35)
[2017-03-08] MEDS ORDERED: LIDOCAINE 1% INJ 50 ML (XYLOCAINE) VIAL ONE (14:36)
[2017-03-08] MEDS ORDERED: NS IV 1000 ML 1,000 ML ONE (14:36)
[2017-03-08] MEDS ORDERED: HEParin (CATH LAB) 2,000 ML IV ONE (14:36)
[2017-03-08] MEDS ORDERED: fentaNYL INJECTION 100 MCG/2 ML AMP ONE (14:36)
[2017-03-08] MEDS ORDERED: diphenhydrAMINE 50 MG/ML INJ (BENADRYL) ONE (14:36)
--- NOTE | 2017-03-08 15:47 | Cardiac Procedure Note-CS/ASA ---
Pre-Procedure Note Pre-Op Procedure Note H&P Reviewed The H&P was reviewed, patient examined and no changes noted. Date H&P Reviewed: Mar 08, 2017 Time H&P Reviewed: 15:00 Conscious Sedation Pre-Proced Time Reviewed: 15:00 ASA Class: 3 Airway Mallampati Classification: (yocha dehe appropriate class) I. II. III, IV Lungs Heart ASA score ASA 1: a normal healthy patient ASA 2: a patient with a mild systemic disease (mid diabetes, controlled hypertension, obesity ASA 3: a patient with a severe systemic disease that limits activity (angina , COPD, prior Myocardial infarction) ASA 4: a patient with an incapacitating disease that is a constant threat to life (CHF, renal failure) ASA 5: a moribund patient not expected to survive 24 hrs. (ruptured aneurysm) ASA 6: a declared brain patient whose organs are being harvested. For emergent operations, add the letter E after the classification Grade 1 Sedation Plan: Analgesia, Amnesia, Plan communicated to team members, Discussed options with patient/fam, Discussed risks with patient/fam Note The patient is an appropriate candidate to undergo the planned procedure, sedation, and anesthesia. The patient immediately re-assessed prior to indication. Queenie WALSH MD Mar 08, 2017 3:47 pm
[2017-03-08] MEDS ORDERED: NS IV 1000 ML 1,000 ML IV SCH ×2 (15:51→16:00)
--- NOTE | 2017-03-08 15:51 | Cardiology Post Procedure Note ---
Post-Procedure Note Physician (s)/Bumper Machine Operator (s) Physician Queenie WALSH MD Pre-Procedure Diagnosis Pre-Procedure Diagnosis: Prolonged chest pain, CABG, abnormal nuclear stress test Post-Procedure Note Procedure Start Date: Mar 08, 2017 Procedure Start Time: 15:30 Name of Procedure: Coronary angiography, left heart catheterization, graft angiography, HARP angiography, aortic root injection, thoracic aortogram. Findings/Procedure Note HARP not used. 3 grafts, 2 are occluded. One likely to the RCA and other to an OM1 artery. Patent graft is a jump graft to the LAD and diagonal. Occluded LAD [place]. Patent left main, left circumflex system. RCA has moderate to severe diffuse mid disease and chronic total occlusion of distal RCA which reconstitutes as a PDA with collaterals from the left coronary system. Normal LV function with inferior hypokinesis. LVEDP 5. Aortogram did not show any aneurysm or dissection. Anesthesia Type: Conscious Sedation Estimated blood loss (mL): 20 Contrast Amount: 155 Post-Procedure Diagnosis Post-operative diagnosis: Patent SVG to the LAD and jump graft to the diagonal. Occluded graft to the RCA and likely OM artery. Chronic total occlusion of distal RCA with collaterals from the left coronary system. Queenie WALSH MD Mar 08, 2017 3:51 pm
[2017-03-08] MEDS ORDERED: CLOPIDOGREL 75 MG (PLAVIX) TABLET PO SCH (16:00)
[2017-03-08] MEDS ORDERED: PATIENT MAY USE OWN MEDS, ALL PO SCH (16:00)
[2017-03-08] MEDS ORDERED: CLOP75TA28 PO (16:08)
[2017-03-08] MEDS ORDERED: ATOR80TA76 PO (16:08)
[2017-03-08] MEDS ORDERED: LISI-556 PO (16:08)
--- NOTE | 2017-03-08 16:12 | Coronary Angiography Report ---
Coronary Angiography Report DATE OF PROCEDURE: 03/08/17 INDICATION: prolonged chest pain, history of CABG, abnormal nuclear stress test PREOPERATIVE DIAGNOSIS: prolonged chest pain, history of CABG, abnormal nuclear stress test POSTOPERATIVE DIAGNOSIS: patent jump graft to the LAD and diagonal, [employer]ACHER RCA with left to right collaterals. HISTORY: this is a 67-year-old gentleman with history of coronary artery disease. He had CABG in the remote past with 3 saphenous vein grafts. He presented with prolonged episode of chest pain. Acute coronary syndrome was ruled out with negative serial troponin and EKG. Nuclear stress test was abnormal. Therefore, the patient was scheduled for coronary angiography. PROCEDURES PERFORMED: 1.Coronary angiography. 2.Left heart catheterization. 3. Graft angiography. 4. HARP angiography. 5. Aortic root injection. 6. Thoracic aortogram. COMPLICATIONS: None. SPECIMENS: None. ESTIMATED BLOOD LOSS: 10 mL ANESTHESIA: Conscious sedation ANTICOAGULATION: none CONTRAST: 1 55 mL FLUOROSCOPY: 10.2 minutes FLOUROSCOPY DOSE:[id number] PROCEDURE DETAILS: The patient is a 67 male and was brought to the odd job laborer after informed consent was taken. All the risks and complications were explained in detail; this included the risk of bleeding, vascular damage, stroke , NC and even . The patient was draped and prepped in the usual sterile fashion. Access was gained in the right femoral artery with a 6 Swedish sheath. Coronary angiography was done with a JR4 catheter, JL4 catheter, pigtail catheter. Left heart catheterization was performed with a pigtail catheter. graft angiography and HARP angiography was performed with a JR4 catheter. FINDINGS: 1.Left main: patent 2.LAD: occluded. Supplied by saphenous vein graft. The same graft is a jump to a first diagonal artery. 3.Left circumflex artery: mild to moderate disease at the ostium of first OM artery. No other significant disease noted in the left circumflex artery. 4.RCA: diffusely diseased. Moderate to severe mid disease. Chronic total occlusion in the distal RCA with reconstitution in the PDA. Supplied by left collaterals. 5. Graft angiography: There are 3 saphenous vein grafts. One is patent which is a jump graft to the LAD and diagonal artery. The other 2 are occluded. One of them is likely to the RCA and the second one is very likely to the first OM artery. 6. HARP angiography: HARP is patent and not grafted. 7. Aortic root injection: No significant aortic regurgitation. 8. Thoracic aortogram: No evidence of aneurysm or dissection noted. 9. Left heart catheterization: aortic pressure 125/61 mmHg. LV pressure 136/5 mmHg. LVEDP 5 mmHg. Normal LV function with inferior hypokinesis. No gradient across the aortic valve. CONCLUSIONS: 1. Patent SVG jump graft to the LAD and diagonal. 2. Occluded graft to the RCA. The RCA has chronic total occlusion in the distal segment with reconstitution as a PDA with [id number] collaterals. 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 If patient continues to have recurrent chest pain it may be prudent to attempt. 3. We will maximize medical therapy. We'll add Plavix, increase the dose of Lipitor and lisinopril. Continue beta albert. Eric Quinonez MD, FACP, FACC, [facility] Interventional Cardiology Queenie QUINONEZ MD Mar 08, 2017 4:12 pm
[2017-03-08] MEDS ORDERED: TAMSULOSIN 0.4 MG (FLOMAX) CAP PO SCH (18:00)
[2017-03-08] MEDS ORDERED: ATORVASTATIN 40 MG (LIPITOR) TABLET PO SCH (21:00)
[2017-03-09] MEDS ORDERED: NON-FORMULARY MEDICATION 1 EA EA (Citalopram Hydrobromide (Citalopram HBr) 20 MG) PO SCH (09:00)
[2017-03-09] MEDS ORDERED: lisINopril 5 MG (PRINIVIL) TABLET PO SCH (09:00)
--- OUTSIDE RECORDS SUMMARY | 2017-03-10 06:07 | XMS REPORT | Continuity of Care Document ---
Author Author [facility] Organization [facility] Address Unknown Phone Unavailable Allergies Active Description Code Type Severity Reaction Onset Reported/Identified Relationship to Patient Clinical Status Yes Penicillins [id number] Drug Allergy Unknown N/A 09/24/2016 Medications There is no data. Problems Date Dx Coded Attending Type Code Diagnosis Diagnosed By 12/25/2013 DEANN PRIDE Jaylene Ot 250.00 12/25/2013 DEANN PRIDE Jaylene Ot 288.00 12/25/2013 DEANN PRIDE N Ot 288.50 12/25/2013 DEANN PRIDE Jaylene Ot V10.05 12/25/2013 DEANN PRIDE Jaylene Ot V45.72 12/25/2013 DEANN PRIDE Jaylene Ot V58.66 12/25/2013 DEANN PRIDE N Ot V58.69 12/25/2013 DEANN PRIDE Jaylene Ot V67.09 12/06/2014 Ot 153.0 12/06/2014 Ot V45.72 12/06/2014 Ot V58.66 12/06/2014 Ot V58.69 12/06/2014 Ot 153.0 12/06/2014 Ot 288.50 12/06/2014 Ot V45.72 12/06/2014 Ot V58.66 12/06/2014 Ot V58.69 12/06/2014 Ot V10.05 12/06/2014 Ot V45.72 12/06/2014 Ot V58.66 12/06/2014 Ot V58.69 12/06/2014 Ot V67.09 12/06/2014 Ot 153.9 12/06/2014 Ot 287.5 12/06/2014 Ot 288.00 12/06/2014 Ot V58.66 12/06/2014 Ot V58.69 12/06/2014 Ot 153.9 12/06/2014 Ot 287.5 12/06/2014 Ot 288.00 12/06/2014 Ot V58.66 12/06/2014 Ot V58.69 12/06/2014 Ot 153.9 12/06/2014 Ot 287.5 12/06/2014 Ot 288.00 12/06/2014 Ot V58.66 12/06/2014 Ot V58.69 12/06/2014 ACE JAMA S MAGNETO ELECTRICIAN Ot 250.00 12/06/2014 JAMAACE Olsen S MAGNETO ELECTRICIAN Ot 288.00 12/06/2014 JAMAACE S MAGNETO ELECTRICIAN Ot 288.50 12/06/2014 JAMAACE Olsen S MAGNETO ELECTRICIAN Ot V10.05 12/06/2014 JAMAACE S MAGNETO ELECTRICIAN Ot V45.72 12/06/2014 JAMAACE S MAGNETO ELECTRICIAN Ot V58.66 12/06/2014 JAMAACE Olsen S MAGNETO ELECTRICIAN Ot V58.69 12/06/2014 ACE JAMA S MAGNETO ELECTRICIAN Ot V67.09 12/06/2014 DEANN PRIDE N Ot 250.00 12/06/2014 SHANNENDEANN ALFARO N Ot 288.00 12/06/2014 SHANNENDEANN ALFARO N Ot 288.50 12/06/2014 SHANNENDEANN ALFARO N Ot V10.05 12/06/2014 SHANNENDEANN ALFARO N Ot V45.72 12/06/2014 SHANNENDEANN ALFARO N Ot V58.66 12/06/2014 SHANNENDEANN ALFARO N Ot V58.69 12/06/2014 DEANN PRIDE N Ot V67.09 12/06/2014 JAMAACE Olsen S MAGNETO ELECTRICIAN Ot E11.9 12/06/2014 JAMAACE S MAGNETO ELECTRICIAN Ot Z79.82 12/06/2014 JAMAACE S MAGNETO ELECTRICIAN Ot Z79.899 12/06/2014 JAMAACE S MAGNETO ELECTRICIAN Ot Z85.038 12/06/2014 JAMAACE S MAGNETO ELECTRICIAN Ot Z90.49 12/22/2014 JAMA ACE S MAGNETO ELECTRICIAN Ot E11.9 12/22/2014 JAMA ACE S MAGNETO ELECTRICIAN Ot Z79.82 12/22/2014 JAMAACE S MAGNETO ELECTRICIAN Ot Z79.899 12/22/2014 JAMA ACE S MAGNETO ELECTRICIAN Ot Z85.038 12/22/2014 JAMA KLAUDIAAH S MAGNETO ELECTRICIAN Ot Z90.49 11/28/2015 Ot 153.9 MALIGNANT ALONSO COLON NOS 11/28/2015 Ot 287.5 THROMBOCYTOPENIA NOS 11/28/2015 Ot 288.00 NEUTROPENIA , UNSPECIFIED 11/28/2015 Ot V58.66 LONG-TERM ( CURRENT) USE OF ASPIRIN 11/28/2015 Ot V58.69 OTH MED,LT, CURRENT USE 11/28/2015 Ot 153.9 MALIGNANT ALONSO COLON NOS 11/28/2015 Ot 287.5 THROMBOCYTOPENIA NOS 11/28/2015 Ot 288.00 NEUTROPENIA , UNSPECIFIED 11/28/2015 Ot V58.66 LONG-TERM ( CURRENT) USE OF ASPIRIN 11/28/2015 Ot V58.69 OTH MED,LT, CURRENT USE 11/28/2015 Ot 153.9 MALIGNANT ALONSO COLON NOS 11/28/2015 Ot 287.5 THROMBOCYTOPENIA NOS 11/28/2015 Ot 288.00 NEUTROPENIA , UNSPECIFIED 11/28/2015 Ot V58.66 LONG-TERM ( CURRENT) USE OF ASPIRIN 11/28/2015 Ot V58.69 OTH MED,LT, CURRENT USE 11/28/2015 ACE JAMA MAGNETO ELECTRICIAN Ot 250.00 DIAB JACOB WO COMPL, TYPE II OR UNSPEC TY 11/28/2015 ACE JAMA MAGNETO ELECTRICIAN Ot 288.00 NEUTROPENIA, UNSPECIFIED 11/28/2015 ACE JAMA MAGNETO ELECTRICIAN Ot 288.50 LEUKOCYTOPENIA, UNSPECIFIED 11/28/2015 ACE JAMA MAGNETO ELECTRICIAN Ot V10.05 HX OF COLONIC MALIGNANCY 11/28/2015 ACE JAMA MAGNETO ELECTRICIAN Ot V45.72 ACQRD ABSENCE INTESTINE - LARGE/SMALL 11/28/2015 ACE JAMA MAGNETO ELECTRICIAN Ot V58.66 LONG-TERM (CURRENT) USE OF ASPIRIN 11/28/2015 ACE JAMA MAGNETO ELECTRICIAN Ot V58.69 OTH MED,LT,CURRENT USE 11/28/2015 ACE JAMA MAGNETO ELECTRICIAN Ot V67.09 SURGERY FOLLOW-UP, OTHER SURGERY 11/28/2015 DEANN PRIDE Ot 250.00 DIAB JACOB WO COMPL, TYPE II OR UNSPEC TY 11/28/2015 DEANN PRIDE Ot 288.00 NEUTROPENIA, UNSPECIFIED 11/28/2015 DEANN PRIDE Ot 288.50 LEUKOCYTOPENIA, UNSPECIFIED 11/28/2015 DEANN PRIDE Ot V10.05 HX OF COLONIC MALIGNANCY 11/28/2015 DEANN PRIDE Ot V45.72 ACQRD ABSENCE INTESTINE - LARGE/SMALL 11/28/2015 DEANN PRIDE Jaylene Ot V58.66 LONG-TERM (CURRENT) USE OF ASPIRIN 11/28/2015 DEANN PRIDE Ot V58.69 OTH MED,LT,CURRENT USE 11/28/2015 DEANN PRIDE Ot V67.09 SURGERY FOLLOW-UP, OTHER SURGERY 11/28/2015 ACE JAMA S MAGNETO ELECTRICIAN Ot E11.9 TYPE 2 DIABETES MELLITUS WITHOUT COMPLIC 11/28/2015 JAMAACE Olsen MAGNETO ELECTRICIAN Ot Z79.82 MCC (CURRENT) USE OF ASPIRIN 11/28/2015 JAMAACE Olsen MAGNET[employer] ELECTRICIAN Ot Z79.899 OTHER MCC (CURRENT) DRUG THERAPY 11/28/2015 JAMAACE Olsen MAGNETO ELECTRICIAN Ot Z85.038 PERSONAL HISTORY OF MALIGNANT NEOPLASM O 11/28/2015 JAMAACE Olsen S MAGNETO ELECTRICIAN Ot Z90.49 ACQUIRED ABSENCE OF OTHER SPECIFIED PART 11/30/2015 DEANN PRIDE Jaylene Ot 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 11/30/2015 DEANN PRIDE Jaylene Ot E11.9 TYPE 2 DIABETES MELLITUS WITHOUT COMPLIC 11/30/2015 DEANN PRIDE N Ot 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 11/30/2015 DEANN PRIDE N Ot Z79.899 OTHER COMMERCIAL HVAC TECHNICIAN (CURRENT) DRUG THERAPY 11/30/2015 DEANN PRIDE Ot Z90.49 ACQUIRED ABSENCE OF OTHER SPECIFIED PART 12/15/2015 ZULEYMA CHU, JOSEPH Jerome Ot Z01.818 ENCOUNTER FOR OTHER PREPROCEDURAL EXAMIN 12/15/2015 ZULEYMA HCU, JOSEPH Jerome Ot Z85.038 PERSONAL HISTORY OF MALIGNANT NEOPLASM O 12/15/2015 JOSEPH AMOR MD Ot Z01.818 ENCOUNTER FOR OTHER PREPROCEDURAL EXAMIN 12/15/2015 JOSEPH AMOR MD Ot Z85.038 PERSONAL HISTORY OF MALIGNANT NEOPLASM O 12/19/2015 ZULEYMA CHU, JOSEPH Jerome Ot Z08 ENCNTR FOR FOLLOW-UP EXAM AFTER TRTMT FO 12/19/2015 JOSEPH AMOR MD Ot Z85.038 PERSONAL HISTORY OF MALIGNANT NEOPLASM O 12/20/2015 DEANN PRIDE Ot 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 12/20/2015 DEANN PRIDE Ot E11.9 TYPE 2 DIABETES MELLITUS WITHOUT COMPLIC 12/20/2015 DEANN PRIDE Ot 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 12/20/2015 DEANN PRIDE Ot Z79.899 OTHER MCC (CURRENT) DRUG THERAPY 12/20/2015 DEANN PRIDE Ot Z90.49 ACQUIRED ABSENCE OF OTHER SPECIFIED PART 12/20/2015 ZULEYMA CHU, JOSEPH Jerome Ot Z08 ENCNTR FOR FOLLOW-UP EXAM AFTER TRTMT FO 12/20/2015 ZULEYMA CHU, JOSEPH Jerome Ot Z85.038 PERSONAL HISTORY OF MALIGNANT NEOPLASM O 01/03/2016 DEANN PRIDE Ot 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 01/03/2016 DEANN PRIDE Ot E11.9 TYPE 2 DIABETES MELLITUS WITHOUT COMPLIC 01/03/2016 DEANN PRIDE Ot Z79.82 MCC (CURRENT) USE OF ASPIRIN 01/03/2016 DEANN PRIDE Ot Z79.899 OTHER MCC (CURRENT) DRUG THERAPY 01/03/2016 DEANN PRIDE Ot Z90.49 ACQUIRED ABSENCE OF OTHER SPECIFIED PART 09/21/2016 Ot 153.9 MALIGNANT ALONSO COLON NOS 09/21/2016 Ot 287.5 THROMBOCYTOPENIA NOS 09/21/2016 Ot 288.00 NEUTROPENIA , UNSPECIFIED 09/21/2016 Ot V58.66 LONG-TERM ( CURRENT) USE OF ASPIRIN 09/21/2016 Ot V58.69 OTH MED,LT, CURRENT USE 09/21/2016 ACE JAMA MAGNETO ELECTRICIAN Ot 250.00 DIAB JACOB WO COMPL, TYPE II OR UNSPEC TY 09/21/2016 ACE JAMA MAGNETO ELECTRICIAN Ot 288.00 NEUTROPENIA, UNSPECIFIED 09/21/2016 ACE JAMA MAGNETO ELECTRICIAN Ot 288.50 LEUKOCYTOPENIA, UNSPECIFIED 09/21/2016 ACE JAMA MAGNETO ELECTRICIAN Ot V10.05 HX OF COLONIC MALIGNANCY 09/21/2016 ACE JAMA MAGNETO ELECTRICIAN Ot V45.72 ACQRD ABSENCE INTESTINE - LARGE/SMALL 09/21/2016 ACE JAMA MAGNETO ELECTRICIAN Ot V58.66 LONG-TERM (CURRENT) USE OF ASPIRIN 09/21/2016 ACE JAMA MAGNETO ELECTRICIAN Ot V58.69 OTH MED,LT,CURRENT USE 09/21/2016 KLAUDIA JAMATIFFANIE Olsen MAGNETO ELECTRICIAN Ot V67.09 SURGERY FOLLOW-UP, OTHER SURGERY 09/21/2016 SHANNEN DEANN Mariee Ot 250.00 DIAB JACOB WO COMPL, TYPE II OR UNSPEC TY 09/21/2016 SHANNEN DEANN Mariee Ot 288.00 NEUTROPENIA, UNSPECIFIED 09/21/2016 SHANNEN DEANN Mariee Ot 288.50 LEUKOCYTOPENIA, UNSPECIFIED 09/21/2016 SHANNEN DEANN Mariee Ot V10.05 HX OF COLONIC MALIGNANCY 09/21/2016 SHANNEN DEANN Mariee Ot V45.72 ACQRD ABSENCE INTESTINE - LARGE/SMALL 09/21/2016 SHANNENDEANN ALFARO Ot V58.66 LONG-TERM (CURRENT) USE OF ASPIRIN 09/21/2016 DEANN PRIDE Ot V58.69 OTH MED,LT,CURRENT USE 09/21/2016 DEANN PRIDE Jaylene Ot V67.09 SURGERY FOLLOW-UP, OTHER SURGERY 09/21/2016 ACE JAMA MAGNETO ELECTRICIAN Ot E11.9 TYPE 2 DIABETES MELLITUS WITHOUT COMPLIC 09/21/2016 ACE JAMA MAGNETO ELECTRICIAN Ot 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 09/21/2016 ACE JAMA MAGNETO ELECTRICIAN Ot Z79.899 OTHER MCC (CURRENT) DRUG THERAPY 09/21/2016 ACE JAMA MAGNETO ELECTRICIAN Ot Z85.038 PERSONAL HISTORY OF MALIGNANT NEOPLASM O 09/21/2016 ACE JAMA MAGNETO ELECTRICIAN Ot Z90.49 ACQUIRED ABSENCE OF OTHER SPECIFIED PART 09/21/2016 DEANN PRIDE Ot 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 09/21/2016 DEANN PRIDE Ot E11.9 TYPE 2 DIABETES MELLITUS WITHOUT COMPLIC 09/21/2016 DEANN PRIDE Ot 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 09/21/2016 DEANN PRIDE N Ot Z79.899 OTHER MCC (CURRENT) DRUG THERAPY 09/21/2016 DEANN PRIDE N Ot Z90.49 ACQUIRED ABSENCE OF OTHER SPECIFIED PART 09/26/2016 MARÍA MATHIS MD Ot E11.9 TYPE 2 DIABETES MELLITUS WITHOUT COMPLIC 09/26/2016 MARÍA MATHIS MD Ot E78.5 HYPERLIPIDEMIA, UNSPECIFIED 09/26/2016 MARÍA MATHIS MD Ot I10 ESSENTIAL (PRIMARY) HYPERTENSION 09/26/2016 MARÍA MATHIS MD Ot I25.10 ATHSCL HEART DISEASE OF [place] CORONARY 09/26/2016 MARÍA MATHIS MD Ot I50.9 HEART FAILURE, UNSPECIFIED 09/26/2016 MARÍA MATHIS MD Ot K21.9 GASTRO-ESOPHAGEAL REFLUX DISEASE WITHOUT 09/26/2016 MARÍA MATHIS MD Ot M22.42 CHONDROMALACIA PATELLAE, LEFT KNEE 09/26/2016 MARÍA MATHIS MD Ot M23.8X2 OTHER INTERNAL DERANGEMENTS OF LEFT KNEE 09/26/2016 MARÍA MATHIS MD, Ot Z79.82 MCC (CURRENT) USE OF ASPIRIN 09/26/2016 MARÍA MATHIS MD, Ot Z79.899 OTHER MCC (CURRENT) DRUG THERAPY 09/26/2016 MARÍA MATHIS MD Ot Z95.1 PRESENCE OF AORTOCORONARY BYPASS GRAFT 09/27/2016 MARÍA MATHIS MD Ot E11.9 TYPE 2 DIABETES MELLITUS WITHOUT COMPLIC 09/27/2016 MARÍA MATHIS MD Ot E78.5 HYPERLIPIDEMIA, UNSPECIFIED 09/27/2016 MARÍA MATHIS MD Ot I10 ESSENTIAL (PRIMARY) HYPERTENSION 09/27/2016 MARÍA MATHIS MD Ot I25.10 ATHSCL HEART DISEASE OF [place] CORONARY 09/27/2016 MARÍA MATHIS MD, Ot I50.9 HEART FAILURE, UNSPECIFIED 09/27/2016 MARÍA MATHIS MD Ot K21.9 GASTRO-ESOPHAGEAL REFLUX DISEASE WITHOUT 09/27/2016 MARÍA MATHIS MD Ot M22.42 CHONDROMALACIA PATELLAE, LEFT KNEE 09/27/2016 MARÍA MATHIS MD Ot M23.8X2 OTHER INTERNAL DERANGEMENTS OF LEFT KNEE 09/27/2016 MARÍA MATHIS MD, Ot 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 Results Test Result Range Methicillin resistant Staphylococcus aureus (MRSA) screening culture - 15:30 Methicillin resistant Staphylococcus aureus (MRSA) screening culture NEG NRG Capillary blood glucose measurement by glucometer (mass/volume) - 09/26/16 08: 00 Capillary blood glucose measurement by glucometer (mass/volume) 115 mg/dL 70-110 Complete blood count (CBC) with automated white blood cell (WBC) differential - 03/07/17 21:53 Blood leukocytes automated count (number/volume) 6.2 10*3/uL 4.3-11.0 Blood erythrocytes automated count (number/volume) 4.98 10*6/uL 4.35-5.85 Venous blood hemoglobin measurement (mass/volume) 14.6 g/dL 13.3-17.7 Blood hematocrit (volume fraction) 43 % 40-54 Automated erythrocyte mean corpuscular volume 86 [foz_us] 80-99 Automated erythrocyte mean corpuscular hemoglobin (mass per erythrocyte) 29 pg 25-34 Automated erythrocyte mean corpuscular hemoglobin concentration measurement ( mass/volume) 34 g/dL 32-36 Automated erythrocyte distribution width ratio 13.4 % 10.0-14.5 Automated blood platelet count (count/volume) 143 10*3/uL 130-400 Automated blood platelet mean volume measurement 10.9 [foz_us] 7.4-10.4 Automated blood neutrophils/100 leukocytes 41 % 42-75 Automated blood lymphocytes/100 leukocytes 48 % 12-44 Blood monocytes/100 leukocytes 8 % 0-12 Automated blood eosinophils/100 leukocytes 4 % 0-10 Automated blood basophils/100 leukocytes 0 % 0-10 Blood neutrophils automated count (number/volume) 2.5 10*3 1.8-7.8 Blood lymphocytes automated count (number/volume) 3.0 10*3 1.0-4.0 Blood monocytes automated count (number/volume) 0.5 10*3 0.0-1.0 Automated eosinophil count 0.2 10*3/uL 0.0-0.3 Automated blood basophil count (count/volume) 0.0 10*3/uL 0.0-0.1 Comprehensive metabolic panel - 03/07/17 21:53 Serum or plasma sodium measurement (moles/volume) 141 mmol/L 135-145 Serum or plasma potassium measurement (moles/volume) 4.2 mmol/L 3.6-5.0 Serum or plasma chloride measurement (moles/volume) 107 mmol/L 98-107 Carbon dioxide 24 mmol/L 21-32 Serum or plasma anion gap determination (moles/volume) 10 mmol/L 5-14 Serum or plasma urea nitrogen measurement (mass/volume) 16 mg/dL 7-18 Serum or plasma creatinine measurement (mass/volume) 0.81 mg/dL 0.60-1.30 Serum or plasma urea nitrogen/creatinine mass ratio 20 NRG Serum or plasma creatinine measurement with calculation of estimated glomerular filtration rate > NRG Serum or plasma glucose measurement (mass/volume) 113 mg/dL 70-105 Serum or plasma calcium measurement (mass/volume) 9.5 mg/dL 8.5-10.1 Serum or plasma total bilirubin measurement (mass/volume) 0.8 mg/dL 0.1-1.0 Serum or plasma alkaline phosphatase measurement (enzymatic activity/volume) 46 U/L 40-136 Serum or plasma aspartate aminotransferase measurement (enzymatic activity/ volume) 33 U/L 5-34 Serum or plasma alanine aminotransferase measurement (enzymatic activity/volume ) 25 U/L 0-55 Serum or plasma protein measurement (mass/volume) 6.7 g/dL 6.4-8.2 Serum or plasma albumin measurement (mass/volume) 4.0 g/dL 3.2-4.5 Magnesium - 03/07/17 21:53 Magnesium 2.1 mg/dL 1.8-2.4 Serum or plasma troponin i.cardiac measurement (mass/volume) - 03/07/17 21:53 Serum or plasma troponin i.cardiac measurement (mass/volume) < ng/ mL <0.30 Fibrin D-dimer FEU measurement in platelet poor plasma (mass/volume) - 21:53 Fibrin D-dimer FEU measurement in platelet poor plasma (mass/volume) 0.45 ug/mL 0.00-0.49 PT panel in platelet poor plasma by coagulation assay - 03/07/17 21:53 Prothrombin time (PT) in platelet poor plasma by coagulation assay 13.3 s 12.2-14.7 INR in platelet poor plasma or blood by coagulation assay 1.0 0.8-1.4 Activated partial thromboplastin time (aPTT) in platelet poor plasma bycoagulation assay - 03/07/17 21:53 Activated partial thromboplastin time (aPTT) in platelet poor plasma bycoagulation assay 29 s 24-35 Myoglobin, serum - 03/07/17 21:53 Myoglobin, serum 104.7 ng/mL 10.0-92.0 Lipase - 03/07/17 21:53 Lipase 38 U/L 8-78 Serum or plasma lithium measurement (moles/volume) - 03/07/17 21:53 BNP level 21.6 pg/mL <100.0 Complete blood count (CBC) with automated white blood cell (WBC) differential - 03/08/17 04:30 Blood leukocytes automated count (number/volume) 4.6 10*3/uL 4.3-11.0 Blood erythrocytes automated count (number/volume) 4.81 10*6/uL 4.35-5.85 Venous blood hemoglobin measurement (mass/volume) 14.2 g/dL 13.3-17.7 Blood hematocrit (volume fraction) 42 % 40-54 Automated erythrocyte mean corpuscular volume 87 [foz_us] 80-99 Automated erythrocyte mean corpuscular hemoglobin (mass per erythrocyte) 30 pg 25-34 Automated erythrocyte mean corpuscular hemoglobin concentration measurement ( mass/volume) 34 g/dL 32-36 Automated erythrocyte distribution width ratio 13.3 % 10.0-14.5 Automated blood platelet count (count/volume) 127 10*3/uL 130-400 Automated blood platelet mean volume measurement 10.6 [foz_us] 7.4-10.4 Automated blood neutrophils/100 leukocytes 43 % 42-75 Automated blood lymphocytes/100 leukocytes 46 % 12-44 Blood monocytes/100 leukocytes 8 % 0-12 Automated blood eosinophils/100 leukocytes 3 % 0-10 Automated blood basophils/100 leukocytes 0 % 0-10 Blood neutrophils automated count (number/volume) 2.0 10*3 1.8-7.8 Blood lymphocytes automated count (number/volume) 2.1 10*3 1.0-4.0 Blood monocytes automated count (number/volume) 0.3 10*3 0.0-1.0 Automated eosinophil count 0.1 10*3/uL 0.0-0.3 Automated blood basophil count (count/volume) 0.0 10*3/uL 0.0-0.1 Whole blood basic metabolic panel - 03/08/17 04:30 Serum or plasma sodium measurement (moles/volume) 141 mmol/L 135-145 Serum or plasma potassium measurement (moles/volume) 4.2 mmol/L 3.6-5.0 Serum or plasma chloride measurement (moles/volume) 106 mmol/L 98-107 Carbon dioxide 24 mmol/L 21-32 Serum or plasma anion gap determination (moles/volume) 11 mmol/L 5-14 Serum or plasma urea nitrogen measurement (mass/volume) 14 mg/dL 7-18 Serum or plasma creatinine measurement (mass/volume) 0.74 mg/dL 0.60-1.30 Serum or plasma urea nitrogen/creatinine mass ratio 19 NRG Serum or plasma creatinine measurement with calculation of estimated glomerular filtration rate > NRG Serum or plasma glucose measurement (mass/volume) 113 mg/dL 70-105 Serum or plasma calcium measurement (mass/volume) 8.8 mg/dL 8.5-10.1 Lipid 1996 panel - 03/08/17 04:30 Serum or plasma triglyceride measurement (mass/volume) 81 mg/dL <150 Serum or plasma cholesterol measurement (mass/volume) 123 mg/dL < 200 Serum or plasma cholesterol in HDL measurement (mass/volume) 37 mg/ dL 40-60 Cholesterol in LDL [mass/volume] in serum or plasma by direct assay 77 mg/dL 1-129 Serum or plasma cholesterol in VLDL measurement (mass/volume) 16 mg/ dL 5-40 Serum or plasma troponin i.cardiac measurement (mass/volume) - 03/08/17 04:30 Serum or plasma troponin i.cardiac measurement (mass/volume) < ng/ mL <0.30 Serum or plasma troponin i.cardiac measurement (mass/volume) - 03/08/17 10:50 Serum or plasma troponin i.cardiac measurement (mass/volume) < ng/ mL <0.30 Capillary blood glucose measurement by glucometer (mass/volume) - 03/08/17 17: 19 Capillary blood glucose measurement by glucometer (mass/volume) 111 mg/dL 70-110 Encounters ACCT No. Visit Date/Time Discharge Status Pt. Type Provider Facility Loc./Unit Complaint [id number] 03/07/2017 22:22:00 03/08/2017 19:53:00 DIS Inpatient ODALIS BURNS DO [facility] ICU CHEST PAIN R/O ACS [id number] 01/15/2017 08:32:00 01/15/2017 23:59:59 CLS Outpatient DEANN PRIDE [facility] ONC [id number] 09/26/2016 07:47:00 09/26/2016 11:58:00 DIS Outpatient MARÍA MATHIS MD [facility] LEFT TORN LATERAL MENICUS [id number] 09/24/2016 14:48:00 09/24/2016 16:18:00 DIS Outpatient MARÍA MATHIS MD [facility] PREOP LEFT TORN LATERAL MENICUS [id number] 12/19/2015 08:12:00 12/19/2015 10:36:00 DIS Outpatient JOSEPH AMOR MD [facility] HX COLON CARCINOMA [id number] 12/15/2015 08:00:00 12/15/2015 09:14:00 DIS Outpatient JOSEPH AMOR MD [facility] PREOP HX. COLON CARCINOMA [id number] 11/28/2015 08:42:00 11/28/2015 23:59:59 CLS Outpatient DEANN PRIDE [facility] ONC [id number] 11/29/2014 08:40:00 11/29/2014 23:59:59 CLS Outpatient ACE JAMA [facility] ONC [id number] 11/26/2013 12:00:00 11/26/2013 23:59:59 CLS Outpatient DEANN PRIDE [facility] ONC [id number] 04/21/2013 13:23:00 04/21/2013 23:59:59 CLS Outpatient ACE JAMA MAGNETO ELECTRICIAN [facility] ONC [id number] 10/02/2012 13:20:00 10/02/2012 23:59:59 CLS Outpatient [id number] 07/08/2012 09:34:00 07/08/2012 23:59:59 CLS Outpatient [id number] 04/02/2011 14:35:00 Document Registration [id number] 10/09/2010 14:42:00 Document Registration [id number] 06/19/2010 14:37:00 Document Registration [id number] 03/13/2010 14:39:00 Document Registration [id number] 12/08/2009 14:30:00 Document Registration [id number] 08/31/2009 14:48:00 Document Registration
== END 2017-03-08 16:10 | disposition home or self-care (01) ==
LOC: EDUNIT# 21:50 → ER 21:52 → ICU 22:22 → UNDOADMOB 22:22 → ICU 23:40 → UNDODISOB 03-08 19:53
PROVIDERS: ADMIT Internal Medicine; ATTEND Internal Medicine
DX: I25.10 Atherosclerotic heart disease of native coronary artery without angina pectoris (principal); I25.82 Chronic total occlusion of coronary artery; I10 Essential (primary) hypertension; N40.0 Benign prostatic hyperplasia without lower urinary tract symptoms; F32.9 Major depressive disorder, single episode, unspecified; F41.9 Anxiety disorder, unspecified; F43.10 Post-traumatic stress disorder, unspecified; E11.9 Type 2 diabetes mellitus without complications; K21.9 Gastro-esophageal reflux disease without esophagitis; I25.2 Old myocardial infarction; E78.00 Pure hypercholesterolemia, unspecified; Z95.1 Presence of aortocoronary bypass graft; Z87.891 Personal history of nicotine dependence; Z79.84 Long term (current) use of oral hypoglycemic drugs; Z79.899 Other long term (current) drug therapy
CPT/HCPCS: 36221; 36415; 71046; 78452; 80048; 80053; 80061; 82962; 83690; 83735; 83874; 83880; 84484; 85025; 85379; 85610; 85730; 93005; 93017; 93041; 93306; 93459; 93567

== ENCOUNTER → 2018-01-14 | Outpatient (CLI) | payer MEDICARE, OTHER ==
[~2018-01-14] MED LIST changes: +ATOR80TA76 PO; +CLOP75TA28 PO; +HYDR-34 PO; -HYDR-3816 PO; +METF-399 PO; -METF1000 PO; -SIMV80TA3 PO; +SIMV80TA5 PO
[2018-01-14 08:43] LABS: BASOPHILS % (AUTO) 1 % (0-10); EOSINOPHILS # (AUTO) 0.1 10^3/uL (0.0-0.3); EOSINOPHILS % (AUTO) 3 % (0-10); HEMATOCRIT 46 % (40-54); HEMOGLOBIN 15.6 G/DL (13.3-17.7); LYMPHOCYTES # (AUTO) 1.6 X 10^3 (1.0-4.0); LYMPHOCYTES % (AUTO) 42 % (12-44); MEAN CORPUSCULAR HEMOGLOBIN 30 PG (25-34); MEAN CORPUSCULAR HGB CONC 34 G/DL (32-36); MEAN CORPUSCULAR VOLUME 89 FL (80-99); MEAN PLATELET VOLUME 10.9 FL (7.4-10.4); MONOCYTES # (AUTO) 0.3 X 10^3 (0.0-1.0); MONOCYTES % (AUTO) 8 % (0-12); NEUTROPHILS # (AUTO) 1.8 X 10^3 (1.8-7.8); NEUTROPHILS % (AUTO) 47 % (42-75); PLATELET COUNT 144 10^3/uL (130-400); RED BLOOD COUNT 5.18 10^6/uL (4.35-5.85); RED CELL DISTRIBUTION WIDTH 13.8 % (10.0-14.5); WHITE BLOOD COUNT 3.9 10^3/uL (4.3-11.0)
[2018-01-14 09:00] LABS: ALANINE AMINOTRANSFERASE 24 U/L (0-55); ALBUMIN 4.3 GM/DL (3.2-4.5); ALKALINE PHOSPHATASE 55 U/L (40-136); BILIRUBIN,TOTAL 1.2 MG/DL (0.1-1.0); BUN/CREATININE RATIO 16; CALCIUM 9.4 MG/DL (8.5-10.1); CARBON DIOXIDE 26 MMOL/L (21-32); CHLORIDE 107 MMOL/L (98-107); CREATININE SERUM 0.75 MG/DL (0.60-1.30); GFR ESTIMATED > 60; GLUCOSE 106 MG/DL (70-105); POTASSIUM 4.3 MMOL/L (3.6-5.0); SODIUM 143 MMOL/L (135-145)
== END ==
LOC: ONC 08:05
PROVIDERS: ATTEND Internal Medicine Hematology & Oncology
DX: C18.3 Malignant neoplasm of hepatic flexure (principal)
CPT/HCPCS: 36415; 80053; 82378; 85025; 99213

== ENCOUNTER 2018-01-15 09:50 | Outpatient (RCR) | payer MEDICARE, OTHER ==
[~2018-01-15 09:50] MED LIST changes: +SIMV80TA21 PO; -SIMV80TA5 PO
== END 2018-04-15 | disposition home or self-care (01) ==
LOC: ONC 09:50
PROVIDERS: ATTEND Internal Medicine Hematology & Oncology
DX: Z08 Encounter for follow-up examination after completed treatment for malignant neoplasm (principal); Z85.038 Personal history of other malignant neoplasm of large intestine; D47.2 Monoclonal gammopathy; D70.9 Neutropenia, unspecified; I25.10 Atherosclerotic heart disease of native coronary artery without angina pectoris; I10 Essential (primary) hypertension; E78.00 Pure hypercholesterolemia, unspecified; E11.42 Type 2 diabetes mellitus with diabetic polyneuropathy; M19.91 Primary osteoarthritis, unspecified site; I25.2 Old myocardial infarction; Z79.01 Long term (current) use of anticoagulants; Z79.82 Long term (current) use of aspirin; Z79.84 Long term (current) use of oral hypoglycemic drugs; Z79.899 Other long term (current) drug therapy
CPT/HCPCS: 36415; 82784; 83883; 84155; 84165

== ENCOUNTER → 2019-01-22 | Outpatient (CLI) | payer MEDICARE, OTHER ==
[~2019-01-22] MED LIST changes: +CATHETER FLUSH 10 ML SYR IV PRN
--- NOTE | 2019-01-22 13:51 | Diagnostic Imaging Report ---
EXAMINATION: CT Abdomen Pelvis without contrast. TECHNIQUE: Multiple contiguous axial images were obtained through the abdomen and pelvis without the use of intravenous contrast. All CT scans use one or more of the following dose optimizing techniques: automated exposure control, MA and/or KvP adjustment based on a patient size and exam type, or iterative reconstruction. HISTORY: PROSTATE CANCER. COMPARISON: PET/CT dated 12/16/2008. FINDINGS: Limited views of the lower thorax are unremarkable. There is a 9 mm segment Fatmata cyst. No suspicious liver lesions. There is no biliary ductal dilation. Gallbladder contains stones. Pancreas is normal. Spleen is normal. Adrenal glands are normal. The kidneys are normal. There is no hydronephrosis. Urinary bladder is normal. There are no dilated loops of large or small bowel. No obstruction or inflammation. There has been a right hemicolectomy. No free fluid or air. No abdominal or pelvic lymphadenopathy. Aorta is normal in caliber without aneurysm. There are no suspicious osseous lesions. IMPRESSION: 1. No metastatic disease identified in the abdomen or pelvis. Dictated by: Dictated on workstation # [id number]
--- NOTE | 2019-01-22 18:39 | Diagnostic Imaging Report ---
EXAMINATION: Whole body bone scan. INDICATION: Prostate CA. TECHNIQUE: This study was performed following administration of 24.4 mCi at 99m-technetium MDP. Anterior and posterior whole body images as well as spot lateral views of the calvarium and the thorax were obtained. FINDINGS: There are no prior nuclear medicine bone scans available for comparison. On the anterior images, there is slightly increased uptake involving the anterior-most portions of the left fifth, sixth, and seventh ribs. I suspect that this finding is more likely due to trauma than to metastatic disease related to the patient's diagnosis of prostate carcinoma. There is no focal area of increased or decreased activity to indicate metastatic disease. There is generalized increased activity about both shoulder and sternoclavicular joints as well as both knee joints. These findings are felt to be degenerative in nature. Both kidneys do show excretion of the radiotracer. IMPRESSION: The abnormal uptake along the anterior aspects of the left fifth, sixth, and seventh ribs is more likely due to trauma than to metastatic disease. There is no evidence for neoplastic disease at this time. Dictated by: Dictated on workstation # [id number]
== END ==
LOC: CARD 11:47
PROVIDERS: ATTEND Urology
DX: C61 Malignant neoplasm of prostate (principal)
CPT/HCPCS: 74176; 78306

== ENCOUNTER 2019-03-12 13:23 | Outpatient (CLI) | payer MEDICARE, OTHER ==
[~2019-03-12] VITALS: Ht 182 cm; Wt 115.4 kg
[~2019-03-12 13:23] MED LIST changes: -CATHETER FLUSH 10 ML SYR IV PRN
[2019-03-12] MEDS ORDERED: GABA-488 PO (13:35)
[2019-03-12] MEDS ORDERED: TMSL.4C PO (13:35)
[2019-03-12] MEDS ORDERED: LISI2.5T PO (13:35)
[2019-03-12 13:39] VITALS: BP 149/79
== END 2019-03-12 15:00 | disposition home or self-care (01) ==
LOC: PREOP 13:23
PROVIDERS: ATTEND Urology
DX: Z01.818 Encounter for other preprocedural examination (principal)
CPT/HCPCS: 87081

== ENCOUNTER 2019-03-20 10:20 | Day surgery (SDC) | payer MEDICARE, OTHER ==
[~2019-03-20] VITALS: Ht 182 cm; Wt 115.4 kg
[2019-03-20] VITALS (11 sets, daily range): BP systolic 115–142; BP diastolic 62–84
--- NOTE | 2019-03-20 07:06 | Progress Note-Pre Operative ---
Pre-Operative Progress Note H&P Reviewed The H&P was reviewed, patient examined and no changes noted. Date Seen by Provider: Mar 20, 2019 Time Seen by Provider: 12:13 Date H&P Reviewed: Mar 20, 2019 Time H&P Reviewed: 12:13 Pre-Operative Diagnosis: CA PROSTATE LUISA SOTOMAYOR MD Mar 20, 2019 07:06
--- NOTE | 2019-03-20 07:08 | Discharge Inst-Urology ---
Discharge Inst-Urology Reconcile Patient Problems Problems Reviewed?: Yes Final Diagnosis CA PROSTATE Patient Instructions/Follow Up Plan/Assessment/Instructions Please make appointment to been seen in office in 2 weeks. Rest for 48 hours On Saturday, if no bleedings, may resume ASA and Plavix, hold if bleeding Increase oral fluids for 48 hours and then as needed. Diet as tolerated. If questions or concerns contact your physician Or seek help at emergency department. LUISA SOTOMAYOR MD Mar 20, 2019 07:08
[~2019-03-20 10:20] MED LIST changes: +GABA-488 PO; +LISI2.5T PO; +TMSL.4C PO
[2019-03-20] MEDS ORDERED: LACTATED RINGERS 1,000 ML IV PRN (10:43)
[2019-03-20] MEDS ORDERED: cefTRIAXone FOR IV USE 1,000 MG in WATER (STERILE) FOR INJECTION 10 ML IV ONE (10:45)
[2019-03-20] MEDS ORDERED: cefTRIAXone 1,000 MG IV (ROCEPHIN) VIAL ONE (10:55)
[2019-03-20] MEDS ORDERED: WATER (STERILE) FOR INJECTION 10 ML ONE (10:55)
[2019-03-20] MEDS ORDERED: fentaNYL INJECTION 100 MCG/2 ML AMP ONE (11:37)
[2019-03-20] MEDS ORDERED: LIDOCAINE PF 2% 5 ML (XYLOCAINE) VIAL ONE (11:37)
[2019-03-20] MEDS ORDERED: MIDAZOLAM 2 MG/2 ML (VERSED) VIAL ONE (11:37)
[2019-03-20] MEDS ORDERED: ONDANSETRON 4 MG/2 ML (SDV) Z0FRAN ONE (11:37)
[2019-03-20] MEDS ORDERED: SEVOFLURANE (ULTANE) 15 ML INHAL SOLN ONE (11:37)
[2019-03-20] MEDS ORDERED: proPOfol 200 MG/20 ML (DIPRIVAN) VIAL IV ONE (11:37)
[2019-03-20] MEDS ORDERED: ROCURONIUM 10 MG/ML 5 ML SYRINGE IV ONE (12:27)
[2019-03-20] MEDS ORDERED: GLYCOPYRROLATE 0.2 MG/ML (ROBINUL) 2 ML VIAL ONE (12:37)
[2019-03-20] MEDS ORDERED: NEOSTIGMINE 3 MG/3 ML VIAL ONE (12:37)
[2019-03-20] MEDS ORDERED: ONDANSETRON 4 MG/2 ML (SDV) Z0FRAN IVP PRN (13:00)
[2019-03-20] MEDS ORDERED: morphine INJ 10 MG/ML 1ML (SYR OR VIAL) IVP ONE (13:00)
--- NOTE | 2019-03-20 14:28 | Anesthesia-General Post-Op ---
General Patient Condition Mental Status/LOC: Same as Preop Cardiovascular: Satisfactory Nausea/Vomiting: Absent Respiratory: Satisfactory Pain: Controlled Complications: Absent Post Op Complications Complications None Follow Up Care/Instructions Patient Instructions None needed. Anesthesia/Patient Condition Patient Condition Patient is doing well, no complaints, stable vital signs, no apparent adverse anesthesia problems. CONSTANZA KEEN DO Mar 20, 2019 14:28
== END 2019-03-20 15:10 | disposition home or self-care (01) ==
LOC: SDC 10:20
PROVIDERS: ATTEND Urology
DX: C61 Malignant neoplasm of prostate (principal); E11.40 Type 2 diabetes mellitus with diabetic neuropathy, unspecified; I25.10 Atherosclerotic heart disease of native coronary artery without angina pectoris; I10 Essential (primary) hypertension; K21.9 Gastro-esophageal reflux disease without esophagitis; E78.00 Pure hypercholesterolemia, unspecified; M19.90 Unspecified osteoarthritis, unspecified site; F41.9 Anxiety disorder, unspecified; F43.10 Post-traumatic stress disorder, unspecified; Z90.89 Acquired absence of other organs; Z88.0 Allergy status to penicillin; Z90.49 Acquired absence of other specified parts of digestive tract; Z79.82 Long term (current) use of aspirin; Z79.02 Long term (current) use of antithrombotics/antiplatelets; Z79.84 Long term (current) use of oral hypoglycemic drugs; Z79.899 Other long term (current) drug therapy; Z87.891 Personal history of nicotine dependence; Z80.0 Family history of malignant neoplasm of digestive organs
CPT/HCPCS: 82962

== ENCOUNTER 2019-04-03 08:37 | Outpatient (RCR) | payer MEDICARE, OTHER ==
[2019-01-13 09:03] LABS: BASOPHILS % (AUTO) 1 % (0-10); EOSINOPHILS # (AUTO) 0.1 10^3/uL (0.0-0.3); EOSINOPHILS % (AUTO) 3 % (0-10); HEMATOCRIT 45 % (40-54); HEMOGLOBIN 14.9 G/DL (13.3-17.7); LYMPHOCYTES # (AUTO) 1.7 X 10^3 (1.0-4.0); LYMPHOCYTES % (AUTO) 43 % (12-44); MEAN CORPUSCULAR HEMOGLOBIN 29 PG (25-34); MEAN CORPUSCULAR HGB CONC 33 G/DL (32-36); MEAN CORPUSCULAR VOLUME 88 FL (80-99); MEAN PLATELET VOLUME 10.8 FL (7.4-10.4); MONOCYTES # (AUTO) 0.3 X 10^3 (0.0-1.0); MONOCYTES % (AUTO) 8 % (0-12); NEUTROPHILS # (AUTO) 1.8 X 10^3 (1.8-7.8); NEUTROPHILS % (AUTO) 46 % (42-75); PLATELET COUNT 137 10^3/uL (130-400); RED CELL DISTRIBUTION WIDTH 13.7 % (10.0-14.5)
[2019-01-13 09:34] LABS: ALANINE AMINOTRANSFERASE 40 U/L (0-55); ALBUMIN 4.1 GM/DL (3.2-4.5); ALKALINE PHOSPHATASE 57 U/L (40-136); BUN/CREATININE RATIO 14; CARBON DIOXIDE 26 MMOL/L (21-32); CHLORIDE 105 MMOL/L (98-107); CREATININE SERUM 0.83 MG/DL (0.60-1.30); GFR ESTIMATED > 60; GLUCOSE 114 MG/DL (70-105); POTASSIUM 4.4 MMOL/L (3.6-5.0); SODIUM 141 MMOL/L (135-145); TOTAL PROTEIN 6.4 GM/DL (6.4-8.2)
== END 2019-04-07 | disposition home or self-care (01) ==
LOC: ONC 08:37
PROVIDERS: ATTEND Internal Medicine Hematology & Oncology
DX: Z08 Encounter for follow-up examination after completed treatment for malignant neoplasm (principal); Z85.038 Personal history of other malignant neoplasm of large intestine; D47.2 Monoclonal gammopathy; D70.9 Neutropenia, unspecified; I25.10 Atherosclerotic heart disease of native coronary artery without angina pectoris; I10 Essential (primary) hypertension; E78.00 Pure hypercholesterolemia, unspecified; E11.42 Type 2 diabetes mellitus with diabetic polyneuropathy; M19.91 Primary osteoarthritis, unspecified site; I25.2 Old myocardial infarction; Z79.01 Long term (current) use of anticoagulants; Z79.82 Long term (current) use of aspirin; Z79.84 Long term (current) use of oral hypoglycemic drugs; Z79.899 Other long term (current) drug therapy
CPT/HCPCS: 77290; 77334; 80053; 82378; 82784; 83883; 84155; 84165; 85025; 99204; 99213

== ENCOUNTER 2019-06-11 09:06 | Outpatient (RCR) | payer MEDICARE, OTHER | END 2019-07-07 | disposition home or self-care (01) | LOC: ONC 09:06 | PROVIDERS: ATTEND Internal Medicine Hematology & Oncology | DX: Z08 Encounter for follow-up examination after completed treatment for malignant neoplasm (principal); Z85.038 Personal history of other malignant neoplasm of large intestine; D47.2 Monoclonal gammopathy; D70.9 Neutropenia, unspecified; I25.10 Atherosclerotic heart disease of native coronary artery without angina pectoris; I10 Essential (primary) hypertension; E78.00 Pure hypercholesterolemia, unspecified; E11.42 Type 2 diabetes mellitus with diabetic polyneuropathy; M19.91 Primary osteoarthritis, unspecified site; I25.2 Old myocardial infarction; Z79.01 Long term (current) use of anticoagulants; Z79.82 Long term (current) use of aspirin; Z79.84 Long term (current) use of oral hypoglycemic drugs; Z79.899 Other long term (current) drug therapy | CPT/HCPCS: 77300; 77301; 77336; 77338; 77385 ==

== ENCOUNTER → 2019-10-27 | Outpatient (CLI) | payer MEDICARE, OTHER ==
[~2019-10-27] MED LIST changes: +ASPI-1238 PO; -ASPI-983 PO
[2019-10-27 13:04] LABS: ABSOLUTE RETIC # 41 10e9/L (24-90); RETICULOCYTE % 0.86 % (0.50-2.40)
[2019-10-27 13:32] LABS: BAND NEUTROPHILS 0 %; BASOPHILS % (MANUAL) 0 %; EOSINOPHILS % (MANUAL) 5 %; LYMPHOCYTES % (MANUAL) 41 %; MONOCYTES % (MANUAL) 10 %; NEUTROPHILS % (MANUAL) 44 %; RBC MORPH NORMAL
== END ==
LOC: LABNPT 12:54
PROVIDERS: ATTEND Family Medicine
DX: Z01.89 Encounter for other specified special examinations (principal)
CPT/HCPCS: 85007; 85045

== ENCOUNTER → 2020-01-13 | Outpatient (CLI) | payer MEDICARE, OTHER ==
[~2020-01-13] MED LIST changes: +ASPI81TA16 PO; +CLOP75TA69 PO; +CYPR4TAB41 PO; +GABA300S2 PO; +OMEG-160 PO
[2020-01-13 12:57] LABS: BASOPHILS % (AUTO) 1 % (0-10); EOSINOPHILS # (AUTO) 0.1 10^3/uL (0.0-0.3); EOSINOPHILS % (AUTO) 4 % (0-10); HEMATOCRIT 44 % (40-54); HEMOGLOBIN 14.8 g/dL (13.3-17.7); LYMPHOCYTES # (AUTO) 1.3 10^3/uL (1.0-4.0); LYMPHOCYTES % (AUTO) 37 % (12-44); MEAN CORPUSCULAR HEMOGLOBIN 30 pg (25-34); MEAN CORPUSCULAR HGB CONC 33 g/dL (32-36); MEAN CORPUSCULAR VOLUME 90 fL (80-99); MEAN PLATELET VOLUME 10.5 fL (9.0-12.2); MONOCYTES # (AUTO) 0.3 10^3/uL (0.0-1.0); MONOCYTES % (AUTO) 9 % (0-12); NEUTROPHILS # (AUTO) 1.8 10^3/uL (1.8-7.8); NEUTROPHILS % (AUTO) 50 % (42-75); PLATELET COUNT 162 10^3/uL (130-400); WHITE BLOOD COUNT 3.6 10^3/uL (4.3-11.0)
[2020-01-13 13:19] LABS: ALANINE AMINOTRANSFERASE 37 U/L (0-55); ALBUMIN 3.9 GM/DL (3.2-4.5); ALKALINE PHOSPHATASE 71 U/L (40-136); BILIRUBIN,TOTAL 0.9 MG/DL (0.1-1.0); BUN/CREATININE RATIO 12; CARBON DIOXIDE 23 MMOL/L (21-32); CHLORIDE 107 MMOL/L (98-107); CREATININE SERUM 0.84 MG/DL (0.60-1.30); GFR ESTIMATED > 60; GLUCOSE 97 MG/DL (70-105); POTASSIUM 4.3 MMOL/L (3.6-5.0); SODIUM 141 MMOL/L (135-145); TOTAL PROTEIN 6.6 GM/DL (6.4-8.2)
== END ==
LOC: EDSTATUS 07-08 15:22 → ONC 12:41
PROVIDERS: ATTEND Internal Medicine Hematology & Oncology
DX: C7A.02 Malignant carcinoid tumors of the appendix, large intestine, and rectum (principal); C61 Malignant neoplasm of prostate; I25.10 Atherosclerotic heart disease of native coronary artery without angina pectoris
CPT/HCPCS: 80053; 82378; 82784 ×3; 83883; 84165; 85025; G0463; 84155; 99213

== ENCOUNTER 2020-02-26 05:31 | Outpatient (RCR) | payer MEDICARE, OTHER ==
[~2020-02-26] VITALS: Ht 183 cm; Wt 111.0 kg
[~2020-02-26 05:31] MED LIST changes: -ASPI81TA16 PO; -CLOP75TA69 PO; -OMEG-160 PO
== END 2020-02-26 09:33 | disposition home or self-care (01) ==
LOC: PREOP 05:31
PROVIDERS: ATTEND Surgery
DX: Z01.812 Encounter for preprocedural laboratory examination (principal); Z12.11 Encounter for screening for malignant neoplasm of colon; Z85.038 Personal history of other malignant neoplasm of large intestine; Z20.822 Contact with and (suspected) exposure to COVID-19
CPT/HCPCS: 87635

== ENCOUNTER 2020-03-01 07:54 | Day surgery (SDC) | payer MEDICARE, OTHER ==
[~2020-03-01] VITALS: Ht 183 cm; Wt 111.0 kg
[2020-03-01] VITALS (8 sets, daily range): BP systolic 108–141; BP diastolic 61–86
[2020-03-01] MEDS ORDERED: LACTATED RINGERS 1,000 ML IV ONE (08:00)
[2020-03-01] MEDS ORDERED: LACTATED RINGERS 1,000 ML IV STA (08:03)
--- NOTE | 2020-03-01 08:09 | Progress Note-Pre Operative ---
Pre-Operative Progress Note H&P Reviewed The H&P was reviewed, patient examined and no changes noted. Date Seen by Provider: Mar 01, 2020 Time Seen by Provider: 08:09 Date H&P Reviewed: Mar 01, 2020 Time H&P Reviewed: 08:09 Pre-Operative Diagnosis: history colon cancer FERN COPE DO Mar 01, 2020 08:09
[2020-03-01] MEDS ORDERED: CLOP75TA69 PO (08:42)
[2020-03-01] MEDS ORDERED: OMEG-160 PO (08:42)
[2020-03-01] MEDS ORDERED: ASPI81TA16 PO (08:43)
[2020-03-01] MEDS ORDERED: PROPOFOL INJECTION 0 ML IV ONE (08:52)
[2020-03-01] MEDS ORDERED: MIDAZOLAM 2 MG/2 ML (VERSED) VIAL ONE (08:52)
[2020-03-01] MEDS ORDERED: PROPOFOL INJECTION 50 ML IV ONE (09:32)
--- NOTE | 2020-03-01 10:01 | Progress Note-Post Operative ---
Post-Operative Progess Note Surgeon (s)/Dean Of Education (s) Surgeon FERN COPE DO Dean Of Education: na Pre-Operative Diagnosis history colon cancer Post-Operative Diagnosis normal colon Procedure & Operative Findings Date of Procedure 03/01/20 Procedure Performed/Findings colonoscopy Anesthesia Type per stockbroking dealer Estimated Blood Loss Estimated blood loss (mL): none Specimens/Packing Specimens Removed none FERN COPE DO Mar 01, 2020 10:01
--- NOTE | 2020-03-01 10:02 | Discharge Inst-Simple/Standard ---
Discharge Inst-Standard Patient Instructions/Follow Up Plan of Care/Instructions/FU: 5 years Sonia- any issues before then be seen at that time. Activity as Tolerated: Yes Discharge Diet: Regular Diet FERN COPE DO Mar 01, 2020 10:02
--- NOTE | 2020-03-01 12:50 | Anesthesia-General Post-Op ---
MAC Patient Condition Mental Status/LOC: Same as Preop Cardiovascular: Satisfactory Nausea/Vomiting: Absent Respiratory: Satisfactory Pain: Controlled Complications: Absent Post Op Complications Complications None Follow Up Care/Instructions Patient Instructions None needed. Anesthesiology Discharge Order Discharge Order Patient is doing well, no complaints, stable vital signs, no apparent adverse anesthesia problems. No complications reported per nursing. ADI CABRERA CRNA Mar 01, 2020 12:50
--- NOTE | 2020-03-01 15:08 | OPERATIVE REPORT ---
DATE OF SERVICE: 03/01/2020 PREOPERATIVE DIAGNOSIS: History of colon cancer. POSTOPERATIVE DIAGNOSIS: Normal colon. PROCEDURE PERFORMED: Colonoscopy. 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 ESTIMATED BLOOD LOSS: None. COMPLICATIONS: None. INDICATIONS FOR PROCEDURE: The patient is a 70-year-old male with history of colon cancer needing followup screening colonoscopy. He understands the risks and benefits of the procedure and wished to proceed with the procedure. Consent was signed in the chart. DESCRIPTION OF PROCEDURE: The patient was taken to the endoscopy suite and placed in a left lateral recumbent position. Timeout was performed. Digital rectal exam was performed. No palpable polyps, masses or ulcerations. Scope was inserted in the rectum, advanced all the way to the ileocolonic anastomosis. No polyps, masses or ulcerations. Scope was then slowly retracted back. Prep was adequate. There were no polyps, masses or ulcerations within the ascending, transverse, descending and sigmoid colon. Once in the rectum, the scope was retroflexed noting no other pathology. Scope was returned to its normal position, slowly withdrawn until completely removed. The patient tolerated the procedure well without any complications and taken to the recovery room in a stable condition. RECOMMENDATIONS: The patient will have a repeat colonoscopy in 5 years. Any issues before that be seen at that time. Job ID: [id number] DocumentID: [id number] Dictated Date: 03/01/2020 10:05:03 [employer] Date: 03/01/2020 15:08:27 Dictated By: FERN SCOTT DO
== END 2020-03-01 10:40 | disposition home or self-care (01) ==
LOC: ENDO 07:54
PROVIDERS: ATTEND Surgery
DX: Z12.11 Encounter for screening for malignant neoplasm of colon (principal); I10 Essential (primary) hypertension; K21.9 Gastro-esophageal reflux disease without esophagitis; F41.9 Anxiety disorder, unspecified; F43.10 Post-traumatic stress disorder, unspecified; M19.90 Unspecified osteoarthritis, unspecified site; E11.9 Type 2 diabetes mellitus without complications; E78.00 Pure hypercholesterolemia, unspecified; E78.5 Hyperlipidemia, unspecified; E66.9 Obesity, unspecified; Z68.33 Body mass index [BMI] 33.0-33.9, adult; Z79.84 Long term (current) use of oral hypoglycemic drugs; Z79.899 Other long term (current) drug therapy; Z79.82 Long term (current) use of aspirin; Z79.02 Long term (current) use of antithrombotics/antiplatelets; Z88.0 Allergy status to penicillin; Z87.891 Personal history of nicotine dependence; Z85.038 Personal history of other malignant neoplasm of large intestine
CPT/HCPCS: 82962; G0105

== ENCOUNTER → 2020-05-02 | Outpatient (CLI) | payer MEDICARE, OTHER ==
[~2020-05-02] MED LIST changes: +ASPI81TA16 PO; +CLOP75TA69 PO; -LISI-556 PO; +LISI-729 PO; +OMEG-160 PO
== END ==
LOC: LABNPT 06:12
PROVIDERS: ATTEND Orthopaedic Surgery
DX: Z01.812 Encounter for preprocedural laboratory examination (principal); Z20.822 Contact with and (suspected) exposure to COVID-19
CPT/HCPCS: 87635

== ENCOUNTER → 2021-01-20 | Outpatient (CLI) | payer MEDICARE, OTHER ==
[~2021-01-20] MED LIST changes: -CITA40TA11 PO; +CITA40TA13 PO; -LISI-729 PO; -LISI2.5T PO; +LISI2.5T13 PO; +LISI5TAB20 PO
[2021-01-20 09:33] LABS: BASOPHILS % (AUTO) 1 % (0-10); EOSINOPHILS # (AUTO) 0.1 10^3/uL (0.0-0.3); EOSINOPHILS % (AUTO) 4 % (0-10); HEMATOCRIT 41 % (40-54); HEMOGLOBIN 13.1 g/dL (13.3-17.7); LYMPHOCYTES # (AUTO) 1.3 10^3/uL (1.0-4.0); LYMPHOCYTES % (AUTO) 41 % (12-44); MEAN CORPUSCULAR HEMOGLOBIN 28 pg (25-34); MEAN CORPUSCULAR HGB CONC 32 g/dL (32-36); MEAN CORPUSCULAR VOLUME 87 fL (80-99); MEAN PLATELET VOLUME 10.3 fL (9.0-12.2); MONOCYTES # (AUTO) 0.3 10^3/uL (0.0-1.0); MONOCYTES % (AUTO) 8 % (0-12); NEUTROPHILS # (AUTO) 1.5 10^3/uL (1.8-7.8); NEUTROPHILS % (AUTO) 46 % (42-75); PLATELET COUNT 146 10^3/uL (130-400); WHITE BLOOD COUNT 3.2 10^3/uL (4.3-11.0)
[2021-01-20 09:54] LABS: ALBUMIN 3.8 GM/DL (3.2-4.5); BILIRUBIN,TOTAL 0.7 MG/DL (0.1-1.0); CALCIUM 8.9 MG/DL (8.5-10.1); CREATININE SERUM 0.82 MG/DL (0.60-1.30); TOTAL PROTEIN 6.5 GM/DL (6.4-8.2)
== END ==
LOC: ONC 09:26
PROVIDERS: ATTEND Internal Medicine Hematology & Oncology
DX: C18.3 Malignant neoplasm of hepatic flexure (principal); C61 Malignant neoplasm of prostate; D72.819 Decreased white blood cell count, unspecified; I25.10 Atherosclerotic heart disease of native coronary artery without angina pectoris; E78.00 Pure hypercholesterolemia, unspecified; E11.9 Type 2 diabetes mellitus without complications; I10 Essential (primary) hypertension; Z90.49 Acquired absence of other specified parts of digestive tract; Z92.3 Personal history of irradiation
CPT/HCPCS: 80053; 82378; 85025; G0463; 99213